=== PATIENT | female | born 1940 | race Asian ===

== ENCOUNTER 2018-12-11 11:43 | Inpatient (IN) | payer MEDICARE, MEDICAID ==
[~2018-12-11] VITALS: Ht 165.1 cm; Wt 61.8 kg
--- NOTE | 2018-12-11 12:08 | Emergency Room Report ---
History of Present Illness General Chief Complaint: Abdominal Pain Source: EMS Present Illness HPI Patient is a 78-year-old female who presented after increased epigastric pain and vomiting. Patient was brought in by EMS. Patient was noted to have acute onset of symptoms. Patient reports having multiple episodes of emesis. She denies any diarrhea. She denies any chest discomfort. History is limited by patient's poor historian. Allergies: Coded Allergies: UNABLE TO ASSESS (Unverified , 12/11/18) Patient History Past Medical History: see triage record Last Menstrual Period: N/A Reviewed Nursing Documentation: PMH: Agreed; PSxH: Agreed Nursing Documentation-PMH Past Medical History Deferred: No Family Available Review of Systems All Other Systems: negative except mentioned in HPI Physical Exam Vital Signs Date Time Temp Pulse Resp B/P (MAP) Pulse Ox O2 Delivery O2 Flow Rate FiO2 12/11/18 11:39 97.5 76 15 98 Room Air Sp02 EP Interpretation: reviewed, normal General Appearance: normal inspection, well appearing, no apparent distress, alert Head: atraumatic ENT: normal ENT inspection, hearing grossly normal, normal voice Neck: normal inspection, full range of motion, supple, no bony tend Respiratory: normal inspection, lungs clear, normal breath sounds, no respiratory distress, no retraction, no wheezing Cardiovascular #1: regular rate, rhythm, no edema Gastrointestinal: normal inspection, normal bowel sounds, non tender, soft, no guarding, no hernia Genitourinary: no CVA tenderness Musculoskeletal: normal inspection, back normal, normal range of motion Neurologic: normal inspection, alert, responsive, speech normal Psychiatric: normal inspection, judgement/insight normal, mood/affect normal Skin: normal inspection, normal color, no rash Medical Decision Making Diagnostic Impression: Primary Impression: Abdominal pain Additional Impressions: Hyponatremia Chronic pain Diabetes ER Course Patient is a 78-year-old female presented after increased abdominal pain and vomiting. Differential diagnosis include was not limited to bowel obstruction, myocardial infarction, aortic dissection among others. Because of complexity of patient's case laboratory testing and imaging studies were ordered. CT imaging of the abdomen pelvis read by radiology showed no evident bowel obstruction as well as chronic compression fracture changes to her lumbar spine. Patient was given IV fluids as well as IV antiemetics. Laboratory testing was notable for severe hyponatremia with sodium of 121. Patient was given IV antiemetics. Dr. Humphrey Vergara was contacted for inpatient management. Labs Test 12/11/18 12:20 12/11/18 14:15 White Blood Count 3.9 K/UL (4.8-10.8) Red Blood Count 3.61 M/UL (4.20-5.40) Hemoglobin 11.7 G/DL (12.0-16.0) Hematocrit 32.9 % (37.0-47.0) Mean Corpuscular Volume 91 FL (80-99) Mean Corpuscular Hemoglobin 32.3 PG (27.0-31.0) Mean Corpuscular Hemoglobin Concent 35.5 G/DL (32.0-36.0) Red Cell Distribution Width 12.2 % (11.6-14.8) Platelet Count 158 K/UL (150-450) Mean Platelet Volume 7.1 FL (6.5-10.1) Neutrophils (%) (Auto) 66.2 % (45.0-75.0) Lymphocytes (%) (Auto) 27.6 % (20.0-45.0) Monocytes (%) (Auto) 5.2 % (1.0-10.0) Eosinophils (%) (Auto) 0.1 % (0.0-3.0) Basophils (%) (Auto) 1.0 % (0.0-2.0) Prothrombin Time 11.1 SEC (9.30-11.50) Prothromb Time International Ratio 1.1 (0.9-1.1) Activated Partial Thromboplast Time 27 SEC (23-33) Sodium Level 121 MMOL/L (136-145) Potassium Level 3.9 MMOL/L (3.5-5.1) Chloride Level 87 MMOL/L (98-107) Carbon Dioxide Level 21 MMOL/L (21-32) Anion Gap 13 mmol/L (5-15) Blood Urea Nitrogen 13 mg/dL (7-18) Creatinine 1.5 MG/DL (0.55-1.30) Estimat Glomerular Filtration Rate mL/min (>60) Glucose Level 194 MG/DL (74-106) Calcium Level 8.5 MG/DL (8.5-10.1) Total Bilirubin 0.6 MG/DL (0.2-1.0) Aspartate Amino Transf (AST/SGOT) 16 U/L (15-37) Alanine Aminotransferase (ALT/SGPT) 14 U/L (12-78) Alkaline Phosphatase 49 U/L (46-116) Troponin I 0.000 ng/mL (0.000-0.056) Total Protein 7.2 G/DL (6.4-8.2) Albumin 4.0 G/DL (3.4-5.0) Globulin 3.2 g/dL Albumin/Globulin Ratio 1.3 (1.0-2.7) Lipase 279 U/L (73-393) Urine Color Pale yellow Urine Appearance Clear Urine pH 7 (4.5-8.0) Urine Specific [place] 1.005 (1.005-1.035) Urine Protein Negative (NEGATIVE) Urine Glucose (UA) 2+ (NEGATIVE) Urine Ketones 2+ (NEGATIVE) Urine Blood Negative (NEGATIVE) Urine Nitrite Negative (NEGATIVE) Urine Bilirubin Negative (NEGATIVE) Urine Urobilinogen Normal MG/DL (0.0-1.0) Urine Leukocyte Esterase 1+ (NEGATIVE) Urine RBC 0 /HPF (0 - 2) Urine WBC 0-2 /HPF (0 - 2) Urine Squamous Epithelial Cells Occasional /LPF Urine Bacteria Occasional /HPF (NONE) Urine Osmolality 233 mOsm/kg (429-449) Urine Random Sodium 79 mmol/L (20-110) EKG Diagnostic Results Rate: normal Rhythm: NSR ST Segments: no acute changes Last Vital Signs Date Time Temp Pulse Resp B/P (MAP) Pulse Ox O2 Delivery O2 Flow Rate FiO2 12/11/18 11:39 97.5 76 15 98 Room Air Status: unchanged Disposition: ADMITTED INPATIENT Condition: Serious Daniel Braga MD December 11, 2018 12:08
[2018-12-11] MEDS ORDERED: Morphine Sulfate 2mg/ml Inj(IV/IM USE ONLY) IVP ONE ×2 (12:15→13:00)
[2018-12-11 12:43] LABS: EOSINOPHILS % (AUTO) 0.1 % (0.0-3.0); HEMATOCRIT 32.9 % (37.0-47.0); HEMOGLOBIN 11.7 G/DL (12.0-16.0); LYMPHOCYTES % (AUTO) 27.6 % (20.0-45.0); MEAN CORPUSCULAR VOLUME 91 FL (80-99); MONOCYTES % (AUTO) 5.2 % (1.0-10.0); NEUTROPHILS % (AUTO) 66.2 % (45.0-75.0); PLATELET COUNT 158 K/UL (150-450); RED BLOOD COUNT 3.61 M/UL (4.20-5.40); RED CELL DISTRIBUTION WIDTH 12.2 % (11.6-14.8); WHITE BLOOD COUNT 3.9 K/UL (4.8-10.8)
[2018-12-11] MEDS ORDERED: Isovue-300 100ml vial INJ PRN (12:45)
[2018-12-11 12:48] LABS: INR 1.1 (0.9-1.1)
[2018-12-11 12:51] LABS: ANION GAP 13 mmol/L (5-15); BLOOD UREA NITROGEN 13 mg/dL (7-18); CALCIUM 8.5 MG/DL (8.5-10.1); CARBON DIOXIDE 21 MMOL/L (21-32); CHLORIDE 87 MMOL/L (98-107); CREATININE 1.5 MG/DL (0.55-1.30); POTASSIUM 3.9 MMOL/L (3.5-5.1); SODIUM 121 MMOL/L (136-145)
[2018-12-11 12:53] LABS: ALANINE AMINOTRANSFERASE 14 U/L (12-78); ALBUMIN/GLOBULIN RATIO 1.3 (1.0-2.7); ALKALINE PHOSPHATASE 49 U/L (46-116); ASPARTATE AMINO TRANSFERASE 16 U/L (15-37); BILIRUBIN,TOTAL 0.6 MG/DL (0.2-1.0)
[2018-12-11 13:33] VITALS: BP 140/87
--- NOTE | 2018-12-11 13:36 | NUR ---
ED Nurse Note:pt. was BIBA from home with c/o nausea and vomiting ,blood sent to labs and iv fluids and meds given
[2018-12-11 14:30] LABS: APPEARANCE,URINE CLEAR; BILIRUBIN, URINE NEGATIVE (NEGATIVE); COLOR,URINE PALE YELLOW; GLUCOSE, URINE (UA) 2+ (NEGATIVE); KETONES,URINE 2+ (NEGATIVE); LEUKOCYTE ESTERASE ,URINE 1+ (NEGATIVE); NITRITE,URINE NEGATIVE (NEGATIVE); PH,URINE 7 (4.5-8.0); PROTEIN,URINE NEGATIVE (NEGATIVE); UROBILINOGEN,URINE NORMAL MG/DL (0.0-1.0)
[2018-12-11] MEDS ORDERED: METOPROLOL SUCC25 MG ORAL (14:33)
[2018-12-11] MEDS ORDERED: ZOFRAN4 M3 ORAL (14:33)
[2018-12-11] MEDS ORDERED: LYRICA75 M1 ORAL (14:33)
[2018-12-11] MEDS ORDERED: ROXICODONE15 MG ORAL (14:33)
[2018-12-11] MEDS ORDERED: ACTOS15 MG ORAL (14:33)
[2018-12-11] MEDS ORDERED: REPAGLINIDE2 MG PO (14:33)
[2018-12-11] MEDS ORDERED: TRADJENTA5 MG PO (14:33)
[2018-12-11] MEDS ORDERED: CREON DR 24,001 EACH PO (14:33)
[2018-12-11] MEDS ORDERED: DOK250 M1 PO (14:33)
[2018-12-11] MEDS ORDERED: ATORVASTATIN CA20 MG ORAL (14:33)
[2018-12-11] MEDS ORDERED: DEXILANT60 MG ORAL (14:33)
[2018-12-11] MEDS ORDERED: NUCYNTA100 MG PO (14:33)
[2018-12-11] MEDS ORDERED: TEMAZEPAM15 MG ORAL (14:33)
[2018-12-11] MEDS ORDERED: GLIMEPIRIDE4 MG ORAL (14:33)
[2018-12-11] MEDS ORDERED: MELOXICAM7.5 MG PO (14:33)
--- NOTE | 2018-12-11 14:34 | NUR ---
ED Nurse Note:Remi Vazquez son [phone]
[2018-12-11 15:25] VITALS: BP 119/66
--- NOTE | 2018-12-11 15:26 | NUR ---
ED Nurse Note:called report to tele -given to RN
--- NOTE | 2018-12-11 16:15 | NUR ---
NURSE NOTES: I received the patient from the ED. Patient alert and oriented x4. Patient oriented to the room. Bed in the lowest position and call light within reach. Patient's belongings list reviewed. Patient does not display any signs of distress or SOB.
--- NOTE | 2018-12-11 16:16 | NUR ---
ED Nurse Note:called report to tele- given to brenda Mcintosh. taken up stairs
[2018-12-11 16:20] VITALS: BP 145/91
[2018-12-11] MEDS: Lyrica 25mg cap ORAL SCH (18:04)
--- NOTE | 2018-12-11 19:19 | NUR ---
HAND-OFF: Report given to FALLON Gil.
--- NOTE | 2018-12-11 19:20 | NUR ---
NURSE NOTES: Received Pt is resting on the bed and awake and alert. Iv site intact and no sign of infiltration noted. Still has mild On & off nausea sense but she said little bit better. On Tele monitor with SR. Placed fall precaution. Will continue to care plan.
[2018-12-11 20:00] VITALS: BP 116/68
[2018-12-11] MEDS: oxyCODONE 5mg IR tab ORAL PRN (20:31)
[2018-12-11] MEDS: NovoLOG Insulin Flexpen SUBQ SCH (20:52)
[2018-12-12] VITALS: BP 117/69
--- NOTE | 2018-12-12 01:00 | NUR ---
NURSE NOTES: Pt is sleeping on the bed and no sign of acute distress noted. Denied pain at this time. Placed fall precaution. Provided good sleep environment. Will continue to monitor any change of condition.
[2018-12-12 04:00] VITALS: BP 119/71
[2018-12-12] MEDS: NovoLOG Insulin Flexpen SUBQ SCH ×4 (06:30→21:00)
--- NOTE | 2018-12-12 06:40 | NUR ---
NURSE NOTES: Dr. Shepard visited and assessed Pt. Noted poor P.O intake. Pt has episode of hypoglycemia with glucose level was 61mg/dl but no symptomatic. Dr. Shepard awarded.
[2018-12-12 06:46] LABS: ALANINE AMINOTRANSFERASE 13 U/L (12-78); ALBUMIN 3.4 G/DL (3.4-5.0); ALKALINE PHOSPHATASE 45 U/L (46-116); ANION GAP 13 mmol/L (5-15); ASPARTATE AMINO TRANSFERASE 23 U/L (15-37); BILIRUBIN,TOTAL 0.6 MG/DL (0.2-1.0); BLOOD UREA NITROGEN 9 mg/dL (7-18); CALCIUM 7.9 MG/DL (8.5-10.1); CARBON DIOXIDE 19 MMOL/L (21-32); CHLORIDE 100 MMOL/L (98-107); POTASSIUM 3.7 MMOL/L (3.5-5.1); SODIUM 132 MMOL/L (136-145)
[2018-12-12] MEDS ORDERED: Sorbitol Solution UD 30ml ORAL SCH (06:59)
--- NOTE | 2018-12-12 07:01 | General Progress Note ---
Assessment/Plan Assessment/Plan: GI CONSULT Patient seen with Latvian speaking RN Connor cornejoian Will discuss with family later today Rec - laxative - check OB - PPI - Hold NSAID - Clears - May need GI w/u for anemia Thank you Jose L Shepard MD Subjective Allergies: Coded Allergies: No Known Allergies (Unverified , 12/11/18) Objective Last 24 Hour Vital Signs Date Time Temp Pulse Resp B/P (MAP) Pulse Ox O2 Delivery O2 Flow Rate FiO2 12/12/18 04:00 58 12/12/18 04:00 98.1 67 20 119/71 (87) 98 12/12/18 00:00 60 12/12/18 00:00 98.7 71 20 117/69 (85) 97 12/11/18 21:00 Room Air 12/11/18 20:00 98.9 72 20 116/68 (84) 98 12/11/18 20:00 72 12/11/18 18:34 97.9 12/11/18 16:20 97.9 76 20 145/91 (109) 98 12/11/18 16:17 Room Air 12/11/18 16:15 97.5 67 15 119/66 100 Room Air 12/11/18 16:14 97.5 12/11/18 16:14 97.5 12/11/18 15:25 97.5 67 15 119/66 100 Room Air 12/11/18 13:33 76 15 Room Air 12/11/18 13:33 97.5 76 15 140/87 98 Room Air 12/11/18 11:39 97.5 76 15 98 Room Air Intake and Output 12/11/18 12/12/18 19:00 07:00 Intake Total 90 ml 1090 ml Balance 90 ml 1090 ml Intake IV Total 90 ml 1090 ml # Voids 2 3 Laboratory Tests 12/11/18 12:20: White Blood Count 3.9L, Red Blood Count 3.61L, Hemoglobin 11.7L, Hematocrit 32.9L, Mean Corpuscular Volume 91, Mean Corpuscular Hemoglobin 32.3H, Mean Corpuscular Hemoglobin Concent 35.5, Red Cell Distribution Width 12.2, Platelet Count 158, Mean Platelet Volume 7.1, Neutrophils (%) (Auto) 66.2, Lymphocytes (% ) (Auto) 27.6, Monocytes (%) (Auto) 5.2, Eosinophils (%) (Auto) 0.1, Basophils ( %) (Auto) 1.0, Prothrombin Time 11.1, Prothromb Time International Ratio 1.1, Activated Partial Thromboplast Time 27, Sodium Level 121L, Potassium Level 3.9, Chloride Level 87L, Carbon Dioxide Level 21, Anion Gap 13, Blood Urea Nitrogen 13, Creatinine 1.5H, Estimat Glomerular Filtration Rate , Glucose Level 194H, Calcium Level 8.5, Total Bilirubin 0.6, Aspartate Amino Transf (AST/SGOT) 16, Alanine Aminotransferase (ALT/SGPT) 14, Alkaline Phosphatase 49, Troponin I 0.000, Total Protein 7.2, Albumin 4.0, Globulin 3.2, Albumin/Globulin Ratio 1.3 , Lipase 279 12/11/18 14:15: Urine Color Pale yellow, Urine Appearance Clear, Urine pH 7, Urine Specific [place] 1.005, Urine Protein Negative, Urine Glucose (UA) 2+H, Urine Ketones 2+H , Urine Blood Negative, Urine Nitrite Negative, Urine Bilirubin Negative, Urine Urobilinogen Normal, Urine Leukocyte Esterase 1+H, Urine RBC 0, Urine WBC 0-2, Urine Squamous Epithelial Cells Occasional, Urine Bacteria Occasional, Urine Osmolality 233L, Urine Random Sodium 79 12/12/18 05:30: Sodium Level 132#L, Potassium Level 3.7, Chloride Level 100, Carbon Dioxide Level 19L, Anion Gap 13, Blood Urea Nitrogen 9, Creatinine 1.0, Estimat Glomerular Filtration Rate , Glucose Level 61#L, Calcium Level 7.9L, Total Bilirubin 0.6, Aspartate Amino Transf (AST/SGOT) 23, Alanine Aminotransferase ( ALT/SGPT) 13, Alkaline Phosphatase 45L, Total Protein 6.7, Albumin 3.4, Globulin 3.3, Albumin/Globulin Ratio 1.0 Height (Feet): 5 Height (Inches): 2.00 Weight (Pounds): 134 Jose L Shepard MD December 12, 2018 07:01
--- NOTE | 2018-12-12 07:12 | NUR ---
HAND-OFF: Report given to FALLON Aly. Pt is resting on the bed and no sign of acute distress noted.
--- NOTE | 2018-12-12 07:38 | NUR ---
NURSE NOTES: Received report from FALLON Gil. Patient in bed resting, no active s/s cardiac, respiratory distress noticed at this time. Patient Aox2, confuse, SR with HR 67. Patient on room air, IV on right FA 22G, asymptomatic, patent, intact, IV running at prescribed rate. Endorsed need of OB stool. Bed in lowest position, bedside commode at the bedside, bed alarm on, side rails up x3, call light within reach. Will continue to monitor.
[2018-12-12 08:00] VITALS: BP 126/64
[2018-12-12 08:06] LABS: BASOPHILS % (AUTO) 0.3 % (0.0-2.0); EOSINOPHILS % (AUTO) 0.2 % (0.0-3.0); HEMATOCRIT 31.8 % (37.0-47.0); HEMOGLOBIN 11.2 G/DL (12.0-16.0); LYMPHOCYTES % (AUTO) 14.9 % (20.0-45.0); MEAN CORPUSCULAR VOLUME 90 FL (80-99); MONOCYTES % (AUTO) 6.1 % (1.0-10.0); NEUTROPHILS % (AUTO) 78.5 % (45.0-75.0); PLATELET COUNT 130 K/UL (150-450); RED BLOOD COUNT 3.52 M/UL (4.20-5.40); RED CELL DISTRIBUTION WIDTH 12.6 % (11.6-14.8); WHITE BLOOD COUNT 7.2 K/UL (4.8-10.8)
--- NOTE | 2018-12-12 08:23 | NUR ---
CASE MANAGEMENT:REVIEW 78 YR OLD FEMALE BIBA FROM HOME CC: ABDOMINAL PAIN WITH N/V X 2 DAYS SI: ABDOMINAL PAIN. DIABETES. HYPONATREMIA 97.6 76 15 140/87 98% ON RA NA-121 CR+1.5 GLUCOSE+194 IS: IV ZOFRAN 500CC NS BOLUS IV MORPHINE IV PEPCID CT ABD/PELVIS : TO TELEMETRY INTERQUAL CRITERIA MET
[2018-12-12] MEDS: Metoprolol Succinate XL 25mg tab ORAL SCH (08:28)
[2018-12-12] MEDS: Glimepiride 4mg tab ORAL SCH (08:28)
[2018-12-12] MEDS: Docusate 250mg cap ORAL SCH (08:28)
[2018-12-12] MEDS: Lyrica 25mg cap ORAL SCH ×3 (08:28→17:15)
[2018-12-12] MEDS: Pantoprazole Inj IVP SCH ×2 (08:28→20:59)
--- NOTE | 2018-12-12 09:15 | Consultation ---
DATE OF CONSULTATION: 12/12/2018 GASTROENTEROLOGY CONSULTATION CONSULTING PHYSICIAN: Jose L Shepard M.D. CHIEF COMPLAINT: I was asked to see this patient by Dr. Humphrey Vergara for evaluation of abdominal pain. HISTORY OF PRESENT ILLNESS: The patient is a 78-year-old Mongolian woman, who is a poor historian even when questioned through a Mongolian-speaking nurse, who was brought into the hospital for a few days of abdominal pain and vomiting. No further details can be ascertained per the patient. Then, at this point, she states her abdominal pain has improved and she apparently told the nurse that she wanted to go home last night. The patient cannot tell me if she has had endoscopy and colonoscopy before and there is no family at bedside at this time. The patient has not been noted to have any hematemesis or melena, but she does have some degree of anemia on her blood test. The remainder of the information can be gathered from her medication list. Most notably she appears to take Mobic and also she is diabetic. She has not had any acid-blocking medications or aspirin. Some of this information is presumed from the patient's medication list, but the patient has a history of diabetes, hypertension, and hypercholesterolemia. Her medications, atorvastatin, but she is also on Dexilant for acid suppression. It is unclear whether the patient has had any endoscopy or colonoscopy in the past. A CT scan of the abdomen and pelvis done last night did not reveal any gastroscope pathology. PAST MEDICAL HISTORY: Based on the information from the chart and her medication list, the patient appears to have a history of hypercholesterolemia, diabetes, and hypertension. FAMILY HISTORY: Unavailable. SOCIAL HISTORY: The patient is Mongolian speaking and according to the nurse may have some degree of dementia. REVIEW OF SYSTEMS: Otherwise negative. MEDICATIONS: Atorvastatin, Dexilant, docusate, glimepiride, Tradjenta, Creon, meloxicam, metoprolol, Zofran, oxycodone, Actos, Lyrica, repaglinide, Nucynta, and temazepam. PHYSICAL EXAMINATION: GENERAL: An elderly Mongolian woman, seen in her room with a Mongolian-speaking nurse at bedside. HEENT: Normocephalic and atraumatic. NECK: Supple. CHEST: Clear to auscultation. CARDIOVASCULAR: Revealed regular rate. ABDOMEN: Soft, nontender, and nondistended. Good bowel sounds. There is no organomegaly or masses. EXTREMITIES: Revealed no edema. LABORATORY DATA: Noted. Preliminary CT scan results were noted. ASSESSMENT: This patient presents with abdominal pain, nausea, and vomiting of unclear etiology. She is somewhat of a poor historian and very little information is available from the chart. There is a variety of factors, which may be resulting in her symptoms. Her oxycodone could be partly factor as well as diabetic gastroparesis. On the other hand, she also has a peptic ulcer disease because she takes meloxicam. Simple viral gastroenteritis, KUB another consideration, which should be true if her current symptom resolves uneventfully. She does however have anemia and should undergo anemia workup if this has not been already done. I will obtain some more information from the patient's family later today and further plans can be made according to that. In the meantime, I would hold any nonsteroidal anti-inflammatory drugs and continue her proton pump inhibitor. Stools can be checked for occult blood and I would begin clear liquid diet and advance as tolerated. RECOMMENDATIONS: Per above discussion and per orders written in the chart. I will discuss the patient's issues with the family and further plans can be made at that time. Thank you for asking me to participate in the care of this patient.s Jose L Shepard M.D. DR: HUA JOB#: [id number] CC: JOSÉ MIGUEL
--- NOTE | 2018-12-12 10:00 | History and Physical Report ---
DATE OF ADMISSION: 12/11/2018 REASON FOR ADMISSION: Abdominal pain. HISTORY: This is a 78-year-old female, presents with abdominal pain. The patient was seen by GI with noted constipation. The patient presents with some abdominal discomfort and increasing vomiting. Symptoms are fairly acute in nature with multiple bouts of emesis. The patient has no diarrhea, no hematemesis, no hematochezia. The patient's care discussed and reviewed with the ER physician. The ER notes were reviewed. Laboratories this morning are pending. The patient had no recent travel. No ill contacts. PAST MEDICAL HISTORY: Notable for hypercholesterolemia, diabetes, hypertension, and possible neuropathy. MEDICATIONS: Reviewed. ALLERGIES: Reviewed. SOCIAL HISTORY: Retired of descent, nonsmoker, nondrinker. No alcohol use. REVIEW OF SYSTEMS: Difficult due to language barrier, but otherwise fairly comfortable. PHYSICAL EXAMINATION: VITAL SIGNS: Blood pressure 119/71, pulse 58, respirations 20, temperature 98.1, and saturations 98%. HEENT: Fairly negative. NECK: Supple. Extraocular movements are grossly intact. Oropharynx essentially clear. LUNGS: Fairly clear. Symmetric. No rhonchi or wheezes. CARDIAC: Normal S1, S2. Regular rate and rhythm without murmurs, rubs, or gallops. ABDOMEN: Soft, nontender, nondistended. EXTREMITIES: No cyanosis, clubbing, or edema. NEUROLOGICAL: Appears to be grossly nonfocal. LABORATORY DATA: Sodium was 121, now 132. Electrolytes are otherwise fairly negative. Calcium is 7.9. CBC, white count 3.9, hemoglobin 11.7, platelets are normal. Imaging noted and reviewed. IMPRESSION: Abdominal pain, noted constipation, hyponatremia, chronic pain, diabetes, and hypertension. RECOMMENDATIONS: Supportive care. IV hydration. Antiemetics. GI evaluation and recommendations. Monitor clinically. Laxatives as able and follow further changes and recommendations and discharge when the patient improves. Humphrey Vergara M.D. DR: NICKY JOB#: [id number] CC:
--- NOTE | 2018-12-12 10:34 | Diagnostic Imaging Report ---
Indication: Chest and abdominal pain. Nausea vomiting Technique: Continuous helical transaxial imaging of the chest, abdomen and pelvis was obtained from the thoracic inlet to the pubic symphysis. No IV contrast was administered. Coronal 2-D reformats were also obtained. Study obtained in a Siemens sensation [address] Total Dose length Product (DLP): 846.[address] Dose Index Volume (CTDIvol): 13.12 mGy Comparison: None Findings: There is mild posterior basal atelectasis. Aorta is calcified. Evaluation limited by the nonadministration of IV contrast. There is a small hiatal hernia. The gallbladder is mildly distended which is nonspecific. No obvious gallstones identified. There is no free fluid. There is no nephrolithiasis or hydronephrosis. There is no evidence of bowel obstruction. Urinary bladder is unremarkable. Atrophic uterus noted. The appendix is normal. There is narrowing of intervertebral discs and accompanying endplate osteophyte formation. Hypertrophied facet joints also demonstrated.. There is a compression fracture deformity of L3 and L1 vertebra which are probably old. The bones are osteopenic. IMPRESSION: No acute findings identified. L1 and L3 vertebral compression fractures probably old. Osteoporosis noted. Atherosclerotic vascular disease Small hiatal hernia [facility] has communicated the preliminary results to the Emergency Department. Their findings are largely concordant with this report. The CT scanner at [facility] is accredited by the [employer] and the scans are performed using dose optimization techniques as appropriate to a performed exam including Automatic Exposure control.
[2018-12-12 12:00] VITALS: BP 112/63
[2018-12-12] MEDS: oxyCODONE 5mg IR tab ORAL PRN (13:56)
[2018-12-12 16:00] VITALS: BP 145/85
--- NOTE | 2018-12-12 19:15 | Physician Query ---
Dr. Reed CDS: Drehaley This is a 78-year-old female, presents with abdominal pain. The patient was seen by GI with noted constipation. consult" There is a variety of factors, which may be resulting in her symptoms. Her oxycodone could be partly factor diabetic gastroparesis. On the other hand, she also has a peptic ulcer disease because she takes meloxicam." CT Chest Abdomen Pelvis wo Con: The gallbladder is mildly distended which is nonspecific. No obvious gallstones identified. There is no free fluid. There is no nephrolithiasis or hydronephrosis.There is no evidence of bowel obstruction. Urinary bladder is unremarkable Lab: AST/ALT normal ALK:49,45L Please specify the etiology of Abdominal Pain: Appendicitis, Acute Thoracic Aortic Aneury Constipation Diverticulitis, Acute Pancreatitis, Acute Peritonitis Peritoneal Inflammation GERD Peptic Ulcer Cholelithiasis Peritoneal Irritation Diabetic Ketoacidosis Cystitis Peritoneal Infection Mesenteric Artery Occlusion Cholecystitis Retroperitoneal infection Cholangitis Pyelonephritis Cancer Pelvic Inflammatory Disease Gastroenteritis, Bacterial Urinary Tract Infection Hernia Irritable Bowel Syndrome Shingles Renal Stones Gastroenteritis, Viral Gastritis Intestinal Obstruction Uremia Ulcerative Colitis Trauma(please specify): Acute Ischemia of the intestine Acute Infarction of the intestine Necrotizing Enterocolitis Other: Unable to determine Comment/Explanation: Present on Admission: Yes (Y) Clinically Undeterminable (W) No (N) PHYSICIAN QUERY FORM ABDOMINAL PAIN PLEASE SEND TO DR BRENT VALDEZ
--- NOTE | 2018-12-12 19:15 | NUR ---
NURSE NOTES: Received report from Kinsey Aly RN. Pt is resting in the bed w/o distress at this time. IV is patent and asymptomatic, NS is running at 100ml/h. Bed is in the lowest position,side rails up x2, and breaks are engaged. Call light and side table are w/in reach. Will continue to monitor.
--- NOTE | 2018-12-12 19:46 | NUR ---
HAND-OFF: Report given to FALLON Wyatt.
[2018-12-12 20:00] VITALS: BP 139/77
[2018-12-13] VITALS: BP 136/75
--- NOTE | 2018-12-13 01:00 | NUR ---
NURSE NOTES: Pt was assisted to repositioned. No acute distress at this time in RA. Will continue to monitor.
[2018-12-13 04:00] VITALS: BP 133/77
[2018-12-13] MEDS: NovoLOG Insulin Flexpen SUBQ SCH ×4 (06:02→20:59)
[2018-12-13] MEDS: oxyCODONE 5mg IR tab ORAL PRN ×3 (06:12→20:23)
--- NOTE | 2018-12-13 07:20 | NUR ---
NURSE NOTES: I received the patient awake and resting in bed. Patient was eating breakfast and conversing. Bed in the lowest position and call light within reach. Patient does not display any signs of distress or SOB. I will continue to monitor the patient and implement care.
--- NOTE | 2018-12-13 07:20 | NUR ---
HAND-OFF: Report given to Radha Arias RN. Pt c/o abdominal pain and pain med was given at 0630. Pt is eating the breakfast by herself. No acute distress at this time.
[2018-12-13 07:45] LABS: BASOPHILS % (AUTO) 0.8 % (0.0-2.0); EOSINOPHILS % (AUTO) 0.8 % (0.0-3.0); HEMATOCRIT 32.3 % (37.0-47.0); HEMOGLOBIN 11.2 G/DL (12.0-16.0); LYMPHOCYTES % (AUTO) 23.9 % (20.0-45.0); MEAN CORPUSCULAR VOLUME 93 FL (80-99); MONOCYTES % (AUTO) 9.1 % (1.0-10.0); NEUTROPHILS % (AUTO) 65.4 % (45.0-75.0); PLATELET COUNT 153 K/UL (150-450); RED BLOOD COUNT 3.47 M/UL (4.20-5.40); RED CELL DISTRIBUTION WIDTH 12.9 % (11.6-14.8); WHITE BLOOD COUNT 5.5 K/UL (4.8-10.8)
[2018-12-13 08:00] VITALS: BP 130/70
[2018-12-13 08:08] LABS: % IRON SATURATION 22 % (15-50); IRON 48 ug/dL (50-175); TOTAL IRON BINDING CAPACITY 221 ug/dL (250-450)
--- NOTE | 2018-12-13 08:13 | General Progress Note ---
Assessment/Plan Assessment/Plan: IMPRESSION: Abdominal pain, noted constipation, hyponatremia, chronic pain, diabetes, and hypertension. anemia differential ? cholecystitis vs pancreatitis vs constipation PLAN care noted await further gi recommendations CT noted finalize care dispo pending impression, plan, and exam edited and reviewed in detail care discussed with RN Subjective Allergies: Coded Allergies: No Known Allergies (Unverified , 12/11/18) Subjective gi noted and discussed care reviewed Objective Last 24 Hour Vital Signs Date Time Temp Pulse Resp B/P (MAP) Pulse Ox O2 Delivery O2 Flow Rate FiO2 12/13/18 04:00 97.9 68 18 133/77 (95) 99 12/13/18 03:49 54 12/13/18 00:01 69 12/13/18 00:00 97.5 66 18 136/75 (95) 98 12/12/18 21:00 Room Air Room Air 12/12/18 20:00 97.8 64 18 139/77 (97) 98 12/12/18 19:16 63 12/12/18 16:00 98.7 73 21 145/85 (105) 98 12/12/18 16:00 63 12/12/18 12:00 97.4 84 21 112/63 (79) 94 12/12/18 12:00 90 12/12/18 09:00 Room Air 12/12/18 08:28 70 120/64 Intake and Output 12/12/18 12/13/18 18:59 06:59 Intake Total 100 ml 800 ml Balance 100 ml 800 ml Intake IV Total 100 ml 800 ml # Voids 3 5 Laboratory Tests 12/12/18 12:55: Stool Occult Blood [Pending] 12/13/18 06:00: White Blood Count 5.5, Red Blood Count 3.47L, Hemoglobin 11.2L, Hematocrit 32.3L , Mean Corpuscular Volume 93, Mean Corpuscular Hemoglobin 32.2H, Mean Corpuscular Hemoglobin Concent 34.5, Red Cell Distribution Width 12.9, Platelet Count 153, Mean Platelet Volume 6.6, Neutrophils (%) (Auto) 65.4, Lymphocytes (% ) (Auto) 23.9, Monocytes (%) (Auto) 9.1, Eosinophils (%) (Auto) 0.8, Basophils ( %) (Auto) 0.8, Iron Level 48L, Total Iron Binding Capacity 221L, Percent Iron Saturation 22, Unsaturated Iron Binding 173 Height (Feet): 5 Height (Inches): 2.00 Weight (Pounds): 134 Objective NAD HEENT: Fairly negative. NECK: Supple. Oropharynx essentially clear. LUNGS: Fairly clear. Symmetric. No rhonchi or wheezes. CARDIAC: Normal S1, S2. Regular rate and rhythm without murmurs, rubs, or gallops. ABDOMEN: Soft, nontender, nondistended. no HSM EXTREMITIES: No cyanosis, clubbing, or edema. NEUROLOGICAL: Appears to be grossly nonfocal. Humphrey Vergara MD December 13, 2018 08:13
[2018-12-13] MEDS: Docusate 250mg cap ORAL SCH (08:26)
[2018-12-13] MEDS: Glimepiride 4mg tab ORAL SCH (08:26)
[2018-12-13] MEDS: Pantoprazole Inj IVP SCH ×2 (08:26→20:23)
[2018-12-13] MEDS: Lyrica 25mg cap ORAL SCH ×3 (08:26→17:30)
[2018-12-13] MEDS: Metoprolol Succinate XL 25mg tab ORAL SCH (08:27)
[2018-12-13 12:00] VITALS: BP 136/94
[2018-12-13 15:56] VITALS: BP 98/65
--- NOTE | 2018-12-13 19:09 | NUR ---
HAND-OFF: Report given to Boogie Wells RN.
--- NOTE | 2018-12-13 19:10 | NUR ---
NURSE NOTES: Received pt from FALLON Mcintosh. PT awake and resting in bed. IV site intact. Bed in lowest position and call light within reach. Will continue with plan of care.
[2018-12-13 20:00] VITALS: BP 108/58
--- NOTE | 2018-12-13 20:06 | General Progress Note ---
Assessment/Plan Assessment/Plan: Assessment - epigastric pain - Anorexia - mild elevation in LFT - anemia Recommendations - PPI - Hold NSAID - advance diet - HIDA scan with CCK in am - EGD Subjective Allergies: Coded Allergies: No Known Allergies (Unverified , 12/11/18) Subjective Above noted patient states she had colonoscopy a few months ago but agreed to EGD states she has difficulty eating due to pain Stool OB (-) Objective Last 24 Hour Vital Signs Date Time Temp Pulse Resp B/P (MAP) Pulse Ox O2 Delivery O2 Flow Rate FiO2 12/13/18 18:00 100.0 12/13/18 15:56 100.0 68 20 98/65 (76) 99 12/13/18 15:13 66 12/13/18 12:50 62 12/13/18 12:00 98.2 71 20 136/94 (108) 95 12/13/18 09:00 Room Air Room Air 12/13/18 08:27 80 113/69 12/13/18 08:00 98.0 71 18 130/70 (90) 98 12/13/18 07:38 89 12/13/18 04:00 97.9 68 18 133/77 (95) 99 12/13/18 03:49 54 12/13/18 00:01 69 12/13/18 00:00 97.5 66 18 136/75 (95) 98 12/12/18 21:00 Room Air Room Air Intake and Output 12/12/18 12/13/18 19:00 07:00 Intake Total 100 ml 700 ml Balance 100 ml 700 ml IV Total 100 ml 700 ml # Voids 3 5 Laboratory Tests 12/13/18 06:00: White Blood Count 5.5, Red Blood Count 3.47L, Hemoglobin 11.2L, Hematocrit 32.3L , Mean Corpuscular Volume 93, Mean Corpuscular Hemoglobin 32.2H, Mean Corpuscular Hemoglobin Concent 34.5, Red Cell Distribution Width 12.9, Platelet Count 153, Mean Platelet Volume 6.6, Neutrophils (%) (Auto) 65.4, Lymphocytes (% ) (Auto) 23.9, Monocytes (%) (Auto) 9.1, Eosinophils (%) (Auto) 0.8, Basophils ( %) (Auto) 0.8, Iron Level 48L, Total Iron Binding Capacity 221L, Percent Iron Saturation 22, Unsaturated Iron Binding 173 Height (Feet): 5 Height (Inches): 2.00 Weight (Pounds): 134 Objective WDWN NCAT supple CTA RRR abd soft ND no edema calm, interactive Jose L Shepard MD December 13, 2018 20:06
[2018-12-14] VITALS: BP 106/66
[2018-12-14 04:00] VITALS: BP 131/73
[2018-12-14] MEDS: NovoLOG Insulin Flexpen SUBQ SCH ×4 (06:30→20:51)
--- NOTE | 2018-12-14 07:15 | NUR ---
HAND-OFF: Report given to FALLON Gates. Endorsed plan of care.
--- NOTE | 2018-12-14 07:34 | NUR ---
NURSE NOTES: Received report from FALLON Matthew. Patient in bed resting, no active s/s cardiac, respiratory distress noticed at this time. Patient on room air, SR with HR 60, AOx3. Endorsed hepatobiliary scan schedule today 12/14/18. IV on right FA 22 G, asymptomatic, patent, intact, IV fluid running at prescribed rate. Bed in lowest position, side rails upx3, call light within reach, bedside commode at the bedside. Will continue to monitor.
--- NOTE | 2018-12-14 07:55 | NUR ---
CASE MANAGEMENT:REVIEW 12/14/18 SI: ABDOMINAL/EPIGASTRIC PAIN CHOLECYSTITIS vs PANCREATITIS vs CONSTIPATION TEMP LAST NIGHT TO 100.0 98.9 67 18 131/73 95% ON RA IS: IVF@100/HR COLACE PO QD TOPROL XL PO QD ACTOS PO QD IV PROTONIX QD AMARYL PO QD LYRICA PO TID OXYCODONE PO Q6HRS PRN : TELEMETRY STATUS DCP: FROM HOME PLAN: CONSENT FOR EGD PLANNED FOR HIDA SCAN
[2018-12-14 08:00] VITALS: BP 123/70
[2018-12-14] MEDS: Glimepiride 4mg tab ORAL SCH (08:00)
[2018-12-14] MEDS: Lyrica 25mg cap ORAL SCH ×3 (08:36→17:38)
[2018-12-14] MEDS: Docusate 250mg cap ORAL SCH (08:36)
[2018-12-14] MEDS: Metoprolol Succinate XL 25mg tab ORAL SCH (08:36)
[2018-12-14] MEDS: Pantoprazole Inj IVP SCH ×2 (08:37→20:55)
--- NOTE | 2018-12-14 08:57 | NUR ---
NURSE NOTES: Paged Dr. Shepard regarding PO medication prior to procedure, per Dr. Shepard contact x-ray to clarify if patient can have PO medication prior to HIDA scan. Called x-ray, spoke with Abundio, patient may have PO medication. Per Dr. Shepard, OFF tele order okay for the procedure. Order noted, entered, carried out. Will continue to monitor.
--- NOTE | 2018-12-14 09:29 | General Progress Note ---
Assessment/Plan Assessment/Plan: IMPRESSION: Abdominal pain, noted constipation, hyponatremia, chronic pain, diabetes, and hypertension. anemia differential ? cholecystitis vs pancreatitis vs constipation PLAN care noted await further gi recommendations EGD CT noted finalize care dispo pending EGD and gi clearance impression, plan, and exam edited and reviewed in detail care discussed with RN Subjective ROS Limited/Unobtainable: Yes Allergies: Coded Allergies: No Known Allergies (Unverified , 12/11/18) Subjective gi noted and discussed care reviewed EGD in am Objective Last 24 Hour Vital Signs Date Time Temp Pulse Resp B/P (MAP) Pulse Ox O2 Delivery O2 Flow Rate FiO2 12/14/18 09:00 Room Air Room Air 12/14/18 08:36 68 123/70 12/14/18 08:00 98.1 68 21 123/70 (87) 96 12/14/18 04:00 67 12/14/18 04:00 98.9 67 18 131/73 (92) 95 12/14/18 00:00 98.1 65 18 106/66 (79) 97 12/14/18 00:00 65 12/13/18 21:00 Room Air Room Air 12/13/18 20:00 98.7 68 18 108/58 (75) 96 12/13/18 20:00 68 12/13/18 18:00 100.0 12/13/18 15:56 100.0 68 20 98/65 (76) 99 12/13/18 15:13 66 12/13/18 12:50 62 12/13/18 12:00 98.2 71 20 136/94 (108) 95 Intake and Output 12/13/18 12/14/18 18:59 06:59 Intake Total 1700 ml 903 ml Output Total 700 ml Balance 1700 ml 203 ml Intake Oral 600 ml IV Total 1100 ml 903 ml Output Urine Total 700 ml # Voids 4 Height (Feet): 5 Height (Inches): 2.00 Weight (Pounds): 136 Objective NAD HEENT: Fairly negative. NECK: Supple. Oropharynx essentially clear. LUNGS: Fairly clear. Symmetric. No rhonchi or wheezes. CARDIAC: Normal S1, S2. Regular rate and rhythm without murmurs, rubs, or gallops. ABDOMEN: Soft, nontender, nondistended. no HSM EXTREMITIES: No cyanosis, clubbing, or edema. NEUROLOGICAL: Appears to be grossly nonfocal. Humphrey Vergara MD December 14, 2018 09:29
--- NOTE | 2018-12-14 10:00 | Diagnostic Imaging Report ---
APPROVED REPORT CPT Code: 34902 Present Symptoms Comments: BILATERAL LEGS PAIN. BILATERAL: Imaging reveals a patent deep venous system bilaterally. There is no evidence of thrombus within the femoral, popliteal or tibial segments. The greater saphenous veins are also within normal limits. Doppler indicates normal spontaneous flow within these segments.
[2018-12-14 12:00] VITALS: BP 137/77
[2018-12-14] MEDS: oxyCODONE 5mg IR tab ORAL PRN (15:38)
--- NOTE | 2018-12-14 15:41 | NUR ---
NURSE NOTES: Patient off unit for HIDA scan second part.
--- NOTE | 2018-12-14 16:27 | Diagnostic Imaging Report ---
Indication: Abdominal Pain Technique: 5.2 mCi of technetium 99 m-Choletec was injected intravenously. Planar imaging of the abdomen was then performed every 3 minutes up to 60 minutes. Patient refused continued imaging in the nuclear medicine Department and was sent back up to the floor. Patient was brought down for delayed imaging at 3.5 hours after administration of radiotracer. Findings: There is uniform uptake of radiotracer within the liver. There is passage of radiotracer into the bile ducts and into the common bile duct. No radiotracer is noted within the small bowel at 60 minutes. No radiotracer is noted in the gallbladder at 60 minutes. On delayed image obtained 3.5 hours after administration of radiotracer, there is a previous accumulation within the gallbladder. Radiotracer has also passed into the small bowel. IMPRESSION: Delayed visualization of the gallbladder between 1 - 3.5 hours. Findings may suggest chronic cholecystitis. Delayed passage of radiotracer into the small bowel possibly suggesting possible sphincter of Oddi dysfunction. Gallbladder ejection fraction images to be obtained.
--- NOTE | 2018-12-14 17:30 | NUR ---
NURSE NOTES: Patient back to tele, special tester on, HIDA scan done, per Abundio, the result will be ready by tomorrow 12/15/18.
--- NOTE | 2018-12-14 19:24 | NUR ---
HAND-OFF: Report given to FALLON Matthew.
--- NOTE | 2018-12-14 19:25 | NUR ---
NURSE NOTES: Received report from FALLON Solitario. Pt is awake and resting in bed. Pt has no c/o pain. IV site intact. Bed in lowest position and call light within reach. Will continue with plan of care.
--- NOTE | 2018-12-14 19:29 | Physician Query ---
Dear Dr. Shepard CDS: Reynold For documentation purposes please evaluate and answer: This is a 78-year-old female, presents with abdominal pain. The patient was seen by GI with noted constipation. consult" There is a variety of factors, which may be resulting in her symptoms. Her oxycodone could be partly factor diabetic gastroparesis. On the other hand, she also has a peptic ulcer disease because she takes meloxicam." Clinical finding: CT Chest Abdomen Pelvis wo Con: The gallbladder is mildly distended which is nonspecific. No obvious gallstones identified. There is no free fluid. There is no nephrolithiasis or hydronephrosis. There is no evidence of bowel obstruction. Urinary bladder is unremarkable Lab: AST/ALT normal ALK:49,45L Please specify the etiology of Abdominal Pain: [ ]Appendicitis, Acute [ ] Thoracic Aortic Aneury [ ] Constipation [ ]Diverticulitis, Acute [ ]Pancreatitis, Acute [ ]Peritonitis [ ]Peritoneal Inflammation [ ]GERD [ ]Peptic Ulcer [ ]Cholelithiasis [ ]Cystitis [ ] Peritoneal Infection [ ] Mesenteric Artery Occlusion [ ]Cholecystitis [ ]Retroperitoneal infection [ ]Cholangitis [ ]Pyelonephritis [ ]Gastroenteritis, Bacterial [ ]Urinary Tract Infection [ ] Irritable Bowel Syndrome [ ]Renal Stones [ ]Gastroenteritis, Viral [ ]Gastritis [ ] Intestinal Obstruction [ ]Ulcerative Colitis [ ]Other: [ ]Unable to determine Comment/Explanation: Present on Admission: [ ]Yes (Y) [ ]Clinically Undeterminable (W) [ ]No (N) PHYSICIAN QUERY FORM ABDOMINAL PAIN MTDD
[2018-12-14 20:00] VITALS: BP 155/86
--- NOTE | 2018-12-14 21:16 | General Progress Note ---
Assessment/Plan Assessment/Plan: Assessment - epigastric pain - improved, possibly due to PUD vs chronic bebeto - Anorexia - mild elevation in LFT - anemia Recommendations - PPI - Hold NSAID - advance diet - EGD Subjective Allergies: Coded Allergies: No Known Allergies (Unverified , 12/11/18) Subjective Above noted better today tolerating po HIDA completed - full report pending Objective Last 24 Hour Vital Signs Date Time Temp Pulse Resp B/P (MAP) Pulse Ox O2 Delivery O2 Flow Rate FiO2 12/14/18 16:00 68 12/14/18 12:00 78 12/14/18 12:00 98.0 75 23 137/77 (97) 97 12/14/18 09:00 Room Air Room Air 12/14/18 08:36 68 123/70 12/14/18 08:00 98.1 68 21 123/70 (87) 96 12/14/18 08:00 65 12/14/18 04:00 67 12/14/18 04:00 98.9 67 18 131/73 (92) 95 12/14/18 00:00 98.1 65 18 106/66 (79) 97 12/14/18 00:00 65 Intake and Output 12/13/18 12/14/18 19:00 07:00 Intake Total 1800 ml 803 ml Output Total 700 ml Balance 1800 ml 103 ml Intake Oral 600 ml IV Total 1200 ml 803 ml Output Urine Total 700 ml # Voids 4 Height (Feet): 5 Height (Inches): 2.00 Weight (Pounds): 136 Objective WDWN NCAT supple CTA RRR abd soft ND no edema calm, interactive Jose L Shepard MD December 14, 2018 21:16
[2018-12-15] VITALS (11 sets, daily range): BP systolic 127–159; BP diastolic 59–90
[2018-12-15] MEDS: oxyCODONE 5mg IR tab ORAL PRN (01:55)
[2018-12-15] MEDS: NovoLOG Insulin Flexpen SUBQ SCH ×4 (06:17→20:20)
--- NOTE | 2018-12-15 07:11 | Anethesia Preoperative Eval ---
Anesthesia Pre-op PMH/ROS General Date of Evaluation: December 15, 2018 Time of Evaluation: 07:10 Anesthesiologist: margi ASA Score: ASA 4 Mallampati Score Class I : Soft palate, uvula, fauces, pillars visible Class II: Soft palate, uvula, fauces visible Class III: Soft palate, base of uvula visible Class IV: Only hard plate visible Mallampati Classification: Class II Surgeon: zuleyma Diagnosis: abdominal pain Surgical Procedure: egd Anesthesia History: none Social History: smoking - nonsmoker Family History: no anesthesia problems Allergies: Coded Allergies: No Known Allergies (Unverified , 12/11/18) Medications: see eMAR Patient NPO?: Yes Past Medical History Cardiovascular: Reports: HTN, other - hypercholesterolemia Endocrine: Reports: DM Anesthesia Pre-op Phys. Exam Physician Exam Last Vital Signs Date Time Temp Pulse Resp B/P (MAP) Pulse Ox O2 Delivery O2 Flow Rate FiO2 12/15/18 04:00 66 12/15/18 04:00 98.1 16 137/74 (95) 96 12/14/18 21:00 Room Air Room Air Constitutional: NAD Neurologic: CN 2-12 intact Cardiovascular: RRR Respiratory: CTA Gastrointestinal: S/NT/ND Airway Exam Mallampati Score: Class II MO: limited Neck: flexible TMD: 2fb ROM: limited Anesthesia Pre-op A/P Labs Labs Test 12/12/18 12:55 12/13/18 06:00 Stool Occult Blood Negative (NEGATIVE) White Blood Count 5.5 K/UL (4.8-10.8) Red Blood Count 3.47 M/UL (4.20-5.40) Hemoglobin 11.2 G/DL (12.0-16.0) Hematocrit 32.3 % (37.0-47.0) Mean Corpuscular Volume 93 FL (80-99) Mean Corpuscular Hemoglobin 32.2 PG (27.0-31.0) Mean Corpuscular Hemoglobin Concent 34.5 G/DL (32.0-36.0) Red Cell Distribution Width 12.9 % (11.6-14.8) Platelet Count 153 K/UL (150-450) Mean Platelet Volume 6.6 FL (6.5-10.1) Neutrophils (%) (Auto) 65.4 % (45.0-75.0) Lymphocytes (%) (Auto) 23.9 % (20.0-45.0) Monocytes (%) (Auto) 9.1 % (1.0-10.0) Eosinophils (%) (Auto) 0.8 % (0.0-3.0) Basophils (%) (Auto) 0.8 % (0.0-2.0) Iron Level 48 ug/dL (50-175) Total Iron Binding Capacity 221 ug/dL (250-450) Percent Iron Saturation 22 % (15-50) Unsaturated Iron Binding 173 ug/dL (112-346) Risk Assessment & Plan Assessment: asa4 Plan: mac Status Change Before Surgery: No Pre-Antibiotics Drug: Chely Vaz MD December 15, 2018 07:11
[2018-12-15] MEDS ORDERED: Midazolam 2mg/2ml Inj IVP PRN (07:15)
[2018-12-15] MEDS ORDERED: fentaNYL 100 mcg/2 mL IV PRN (07:15)
[2018-12-15] MEDS ORDERED: Atropine Inj 1mg/10ml Syr IV PRN (07:15)
[2018-12-15] MEDS ORDERED: DiphenhydrAMINE 50mg/ml Inj IVP PRN (07:15)
--- NOTE | 2018-12-15 07:30 | NUR ---
NURSE NOTES: Report received from FALLON Sanchez. Pt shows no signs of distress, no SOB, no pain. A+Ox3. Respirations are even and unlabored on room air. IV site is patent, intact, and running fluids at prescribed rate. Bed is at lowest position, brakes engaged, siderails x3, bed alarm on, and call light within reach. Pt is in stable condition at this time; will continue to monitor.
[2018-12-15] MEDS: Docusate 250mg cap ORAL SCH (09:00)
[2018-12-15] MEDS: Pantoprazole Inj IVP SCH (09:00)
[2018-12-15] MEDS: Glimepiride 4mg tab ORAL SCH (09:00)
[2018-12-15] MEDS: Metoprolol Succinate XL 25mg tab ORAL SCH (09:00)
[2018-12-15] MEDS: Lyrica 25mg cap ORAL SCH ×3 (09:00→17:00)
--- NOTE | 2018-12-15 09:24 | NUR ---
NURSE NOTES: Pt off floor for procedure. Off tele order in.
[2018-12-15] MEDS ORDERED: NS 500ML IVPB ONE (09:50)
--- NOTE | 2018-12-15 09:50 | General Progress Note ---
Assessment/Plan Assessment/Plan: Assessment - epigastric pain - improved, possibly due to PUD vs chronic bebeto - Nausea, anorexia - ? biliary process, ? SOD, ? PUD - mild elevation in LFT - anemia, with OB (-) stools Recommendations - PPI - Hold NSAID - push po diet - EGD today Subjective Allergies: Coded Allergies: No Known Allergies (Unverified , 12/11/18) Subjective Above noted better today tolerating po HIDA noted: "Delayed visualization of the gallbladder between 1 - 3.5 hours. Findings may suggest chronic cholecystitis." "Delayed passage of radiotracer into the small bowel possibly suggesting possible sphincter of Oddi dysfunction." "Gallbladder ejection fraction images to be obtained." Stool OB (-) Objective Last 24 Hour Vital Signs Date Time Temp Pulse Resp B/P (MAP) Pulse Ox O2 Delivery O2 Flow Rate FiO2 12/15/18 08:00 97.4 73 20 128/59 (82) 94 12/15/18 04:00 66 12/15/18 04:00 98.1 66 16 137/74 (95) 96 12/15/18 00:00 97.9 92 18 130/83 (99) 71 12/15/18 00:00 92 12/14/18 21:00 Room Air Room Air 12/14/18 20:00 98.2 64 18 155/86 (109) 98 12/14/18 16:00 68 12/14/18 12:00 78 12/14/18 12:00 98.0 75 23 137/77 (97) 97 Intake and Output 12/14/18 12/15/18 19:00 07:00 Intake Total 240 ml 270 ml Output Total 1000 ml Balance 240 ml -730 ml Intake Oral 240 ml 270 ml Output Urine Total 1000 ml # Voids 1 Height (Feet): 5 Height (Inches): 5.00 Weight (Pounds): 136 Objective WDWN NCAT supple CTA RRR abd soft ND no edema calm, interactive Jose L Shepard MD December 15, 2018 09:50
--- NOTE | 2018-12-15 09:51 | Pre-Procedure Note/Attestation ---
Pre-Procedure Note/Attestation Complete Prior to Procedure Planned Procedure: not applicable Procedure Narrative: EGD Indications for Procedure Pre-Operative Diagnosis: abd pain, vomiting Attestation I attest that I discussed the nature of the procedure; its benefits; risks and complications; and alternatives (and the risks and benefits of such alternatives ), prior to the procedure, with the patient (or the patient's legal equal opportunity representative). I attest that, if there was a reasonable possibility of needing a blood transfusion, the patient (or the patient's legal equal opportunity representative) was given the [facility] standardized written summary, pursuant to the Jarad Clair Blood Safety Act ([place] Health and Safety Code # 1645, as amended). I attest that I re-evaluated the patient just prior to the surgery and that there has been no change in the patient's H&P, except as documented below: Jose L Shepard MD December 15, 2018 09:51
[2018-12-15] MEDS ORDERED: Lidocaine 1% MPF 10mg/ml 5ml ONE (10:00)
[2018-12-15] MEDS ORDERED: Propofol 200mg/20ml IV ONE (10:00)
--- NOTE | 2018-12-15 10:28 | General Progress Note ---
Assessment/Plan Assessment/Plan: IMPRESSION: Abdominal pain, noted constipation, hyponatremia, chronic pain, diabetes, and hypertension. anemia PLAN care noted await further gi recommendations EGD pending this am CT noted finalize care dispo possibly today impression, plan, and exam edited and reviewed in detail care discussed with RN Subjective Allergies: Coded Allergies: No Known Allergies (Unverified , 12/11/18) Subjective gi noted and discussed care reviewed EGD today Objective Last 24 Hour Vital Signs Date Time Temp Pulse Resp B/P (MAP) Pulse Ox O2 Delivery O2 Flow Rate FiO2 12/15/18 09:00 Room Air Room Air 12/15/18 09:00 73 128/59 12/15/18 08:00 97.4 73 20 128/59 (82) 94 12/15/18 08:00 75 12/15/18 04:00 66 12/15/18 04:00 98.1 66 16 137/74 (95) 96 12/15/18 00:00 97.9 92 18 130/83 (99) 71 12/15/18 00:00 92 12/14/18 21:00 Room Air Room Air 12/14/18 20:00 98.2 64 18 155/86 (109) 98 12/14/18 16:00 68 12/14/18 12:00 78 12/14/18 12:00 98.0 75 23 137/77 (97) 97 Intake and Output 12/14/18 12/15/18 18:59 06:59 Intake Total 240 ml 270 ml Output Total 1000 ml Balance 240 ml -730 ml Intake Oral 240 ml 270 ml Output Urine Total 1000 ml # Voids 1 Height (Feet): 5 Height (Inches): 5.00 Weight (Pounds): 136 Objective NAD HEENT: Fairly negative. NECK: Supple. Oropharynx essentially clear. LUNGS: Fairly clear. Symmetric. No rhonchi or wheezes. CARDIAC: Normal S1, S2. Regular rate and rhythm without murmurs, rubs, or gallops. ABDOMEN: Soft, nontender, nondistended. no HSM EXTREMITIES: No cyanosis, clubbing, or edema. NEUROLOGICAL: Appears to be grossly nonfocal. Humphrey Vergara MD December 15, 2018 10:28
--- NOTE | 2018-12-15 10:51 | Immediate Post-Op Evaluation ---
Immediate Post-Op Evalulation Immediate Post-Op Evalulation Procedure: egd w/bx Date of Evaluation: December 15, 2018 Time of Evaluation: 10:49 IV Fluids: 200ml 0.9ns Blood Products: none Estimated Blood Loss: negligible Blood Pressure Systolic: 134 Blood Pressure Diastolic: 89 Pulse Rate: 85 Respiratory Rate: 18 O2 Sat by Pulse Oximetry: 100 Temperature (Fahrenheit): 98.0 Pain Score (1-10): 0 Nausea: No Vomiting: No Complications none Patient Status: awake, reacts, patent Hydration Status: adequate Drug: Chely Vaz MD December 15, 2018 10:51
--- NOTE | 2018-12-15 10:52 | 48 Hour Post Anesthesia Eval ---
Post Anesthesia Evaluation Procedure: egd w/bx Date of Evaluation: December 15, 2018 Time of Evaluation: 10:51 Blood Pressure Systolic: 137 0: 74 Pulse Rate: 85 Respiratory Rate: 18 Temperature (Fahrenheit): 98.0 O2 Sat by Pulse Oximetry: 100 Airway: patent Nausea: No Vomiting: No Pain Intensity: 0 Hydration Status: adequate Cardiopulmonary Status: stable Mental Status/LOC: patient returned to baseline Post-Anesthesia Complications: none Follow-up care needed: N/A Chely Contreras MD December 15, 2018 10:52
--- NOTE | 2018-12-15 11:24 | Endoscopy Procedure Note ---
Endoscopy Procedure Note General Indication for Procedure: abd pain, Procedures Performed: EGD Operative Findings/Diagnosis: normal Specimen: yes Pt Tolerated Procedure Well: Yes Estimated Blood Loss: none Anesthesia Anesthesiologist: teresa cobian Anesthesia: MAC Medications Medication Given: see anesthesia record Inserted Devices Implant(s) used?: Yes GI Core Measures 50 yrs or older w/o bx or poly: Not Applicable 10yrs. F/U not recommended: Not Applicable If not recommended, why?: Jose L Shepard MD December 15, 2018 11:24
--- NOTE | 2018-12-15 11:26 | Brief Operative Note ---
Immediate Post Operative Note Operative Note Chief Complaint: abd pain Pre-op Diagnosis: abd pain, vomiting Procedure: EGD Post-op Diagnosis: normal Surgeon: zuleyma Anesthesiologist: teresa cobian Anesthesia: MAC Specimen: yes Complications: none Condition: stable Fluids: recorded Estimated Blood Loss: none Drains: none Implant(s) used?: No Jose L Shepard MD December 15, 2018 11:26
[2018-12-15] MEDS: LORazepam 1mg tab ORAL PRN ×2 (16:55→22:03)
[2018-12-15] MEDS: traMADol 50mg tab ORAL PRN ×2 (16:55→22:56)
--- NOTE | 2018-12-15 18:45 | Operative Note - Dictated ---
DATE OF OPERATION: 12/15/2018 PROCEDURE: Upper gastrointestinal endoscopy with enteroscopy and biopsy. SURGEON: Jose L Shepard M.D. ANESTHESIA: Please see the separate anesthesiologist notes for details. PRE-ENDOSCOPIC DIAGNOSIS: Vomiting with dark stools. POST-ENDOSCOPIC DIAGNOSIS: Normal upper gastrointestinal endoscopy as well as enteroscopy status post biopsy. DESCRIPTION OF PROCEDURE: The procedure, its risks, indications, alternatives, and possible complications were explained and an informed consent was obtained. The patient was then sedated in the left lateral decubitus position and the pediatric colonoscope was introduced into oropharynx and advanced to about 20 to 30 centimeters beyond the duodenum. The colonoscope was then gradually withdrawn and the mucosa was examined carefully. Examination of the upper gastrointestinal mucosa did not reveal any abnormalities. Random biopsies of the duodenum and stomach were sent to pathology for review. The colonoscope was removed and the patient was sent to recovery in good condition. COMPLICATIONS: None. RECOMMENDATIONS: 1. Follow up biopsy results. 2. Resume oral diet. Jose L Shepard M.D. DR: MARAL JOB#: [id number] CC:
--- NOTE | 2018-12-15 18:59 | NUR ---
HAND-OFF: Report given to FALLON Cifuentes. Pt is in stable condition; plan of care endorsed.
--- NOTE | 2018-12-15 19:15 | NUR ---
NURSE NOTES: Received report from Jackie RN, pt. in bed awake, Yoruba speaking, no signs or symptoms of acute cardiac or respiratory distress noted, bed in lowest position and call light within easy reach, bed alarm on, side rails up x's3 and safety brakes engaged, pt. aware to ask for assist when trying to sit up, pt. appears to be sating well on room air at 98%- no distress noted, pt. appears to be resting comfortably, pt. is clean and dry, RT. hand 22G NS running at 100cc/hr- IV patent and intact, safety measures continued, will continue with plan of care.
--- NOTE | 2018-12-15 23:30 | NUR ---
NURSE NOTES: called son regarding pt. not taking her medication Ultram she is asking for pain- explained to Son that she was given Tylenol earlier because she was not due for her Ultram - son aware- Explained to son that Japanese speaking nurse Kade explained to pt. as well and that she would be getting Ultram at 2300 12/15/18.
--- NOTE | 2018-12-15 23:55 | NUR ---
NURSE NOTES: left msg for DR. amor, regarding pt. wanting a sleeping pill she had before, pt. was explained that sleeping was given to her Remeron and that Restoril was d/c - pt. still asking for another sleeping pill- waiting for call back from doctor.
[2018-12-16] VITALS: BP 126/84
--- NOTE | 2018-12-16 00:09 | NUR ---
NURSE NOTES: DR. Shepard called- per doctor to cancel Remeron and put pt. back on Restoril 15mg as before -can give one now and aware pt. received Remeron at 2010 yesterday- orders carried out.
[2018-12-16 04:00] VITALS: BP 124/69
[2018-12-16] MEDS: NovoLOG Insulin Flexpen SUBQ SCH ×4 (05:30→21:18)
--- NOTE | 2018-12-16 07:27 | NUR ---
HAND-OFF: Report given to Guillermo Rn, pt. remains stable and no signs of distress noted.
--- NOTE | 2018-12-16 07:31 | NUR ---
NURSE NOTES: Pt received from FALLON Cifuentes currently asleep and resting in bed with no s/s of acute distress. IV site asymptomatic and patent, on NS at 100 ml/hr. Bed in lowest position, bed alarm on. Call light and belongings within reach. SCDs off, per pt refusal. BSC at bedside. Will continue to monitor pt accordingly.
[2018-12-16 08:00] VITALS: BP 123/82
[2018-12-16] MEDS: Docusate 250mg cap ORAL SCH (08:26)
[2018-12-16] MEDS: Glimepiride 4mg tab ORAL SCH (08:27)
[2018-12-16] MEDS: Lyrica 25mg cap ORAL SCH ×3 (08:27→17:14)
[2018-12-16] MEDS: Metoprolol Succinate XL 25mg tab ORAL SCH (08:27)
--- NOTE | 2018-12-16 08:49 | General Progress Note ---
Assessment/Plan Assessment/Plan: IMPRESSION: Abdominal pain, noted constipation, hyponatremia, chronic pain, diabetes, and hypertension. anemia PLAN care noted dc planning d/w gi monitor for change home health on discharge impression, plan, and exam edited and reviewed in detail care discussed with RN Subjective Allergies: Coded Allergies: No Known Allergies (Unverified , 12/11/18) Subjective gi noted and discussed underwent EGD Objective Last 24 Hour Vital Signs Date Time Temp Pulse Resp B/P (MAP) Pulse Ox O2 Delivery O2 Flow Rate FiO2 12/16/18 08:27 86 123/82 12/16/18 04:00 97.8 69 18 124/69 (87) 96 12/16/18 04:00 65 12/16/18 00:00 97.6 80 20 126/84 (98) 98 12/16/18 00:00 96 12/15/18 23:26 98.9 12/15/18 21:00 Room Air Room Air 12/15/18 20:30 98.9 12/15/18 20:00 98.0 88 18 132/90 (104) 99 12/15/18 20:00 84 12/15/18 16:00 98.9 82 20 127/72 (90) 99 12/15/18 16:00 114 12/15/18 12:00 84 12/15/18 11:16 97.8 79 17 159/79 98 Room Air 12/15/18 11:10 86 18 154/84 99 Room Air 12/15/18 11:00 81 17 155/85 100 Room Air 12/15/18 10:52 85 18 100 12/15/18 10:51 85 18 100 12/15/18 10:50 79 14 150/82 97 Room Air 12/15/18 10:45 85 17 140/88 100 Room Air 12/15/18 10:37 98.0 81 18 134/89 100 Room Air 12/15/18 09:00 Room Air Room Air 12/15/18 09:00 73 128/59 Intake and Output 12/15/18 12/16/18 19:00 07:00 Intake Total 900 ml 925 ml Balance 900 ml 925 ml Intake Oral 200 ml IV Total 700 ml 925 ml # Voids 2 4 Height (Feet): 5 Height (Inches): 5.00 Weight (Pounds): 136 Objective NAD HEENT: Fairly negative. NECK: Supple. Oropharynx essentially clear. LUNGS: Fairly clear. Symmetric. No rhonchi or wheezes. CARDIAC: Normal S1, S2. Regular rate and rhythm without murmurs, rubs, or gallops. ABDOMEN: Soft, nontender, nondistended. no HSM EXTREMITIES: No cyanosis, clubbing, or edema. NEUROLOGICAL: Appears to be grossly nonfocal. Humphrey Vergara MD December 16, 2018 08:49
--- NOTE | 2018-12-16 11:26 | NUR ---
CASE MANAGEMENT:REVIEW 12/16/18 SI: ABDOMINAL/EPIGASTRIC PAIN CHOLECYSTITIS vs PANCREATITIS vs CONSTIPATION S/P EGD AND HIDA SCAN 97.8 65 18 124/69 96% ON RA IS: IVF@100/HR PROTONIX PO QD TOPROL XL PO QD ACTOS PO QD AMARYL PO QD LYRICA PO TID : TELEMETRY STATUS DCP: FROM HOME
[2018-12-16 12:00] VITALS: BP 118/80
[2018-12-16] MEDS: traMADol 50mg tab ORAL PRN ×2 (13:23→21:20)
--- NOTE | 2018-12-16 15:47 | NUR ---
NURSE NOTES: Pt complained of indigestion with meals but no vomiting witnessed, per pt she takes "Creon" at home. RN endorsed to Dr. Vergara and Dr. Shepard, per MDs ok to continue Creon. RN spoke with [facility] pharmacist who stated that the closest medication in pharmacy would be Pancrease (Zenpep). Will carry out orders.
[2018-12-16 16:00] VITALS: BP 120/78
--- NOTE | 2018-12-16 16:16 | General Progress Note ---
Assessment/Plan Assessment/Plan: Assessment - epigastric pain - improved, possibly due to PUD vs chronic bebeto - Nausea, anorexia - ? biliary process, ? SOD, ? PUD - mild elevation in LFT - anemia, with OB (-) stools Recommendations - PPI - Hold NSAID - push po diet - D/W RN - need documentation of any witnessed vomiting Subjective Allergies: Coded Allergies: No Known Allergies (Unverified , 12/11/18) Subjective Above noted better today tolerating po says had some vomiting last night no RN report of vomiting ate the whole plate of breakfast Objective Last 24 Hour Vital Signs Date Time Temp Pulse Resp B/P (MAP) Pulse Ox O2 Delivery O2 Flow Rate FiO2 12/16/18 12:00 74 12/16/18 12:00 98.0 93 18 118/80 (93) 95 12/16/18 09:00 Room Air Room Air 12/16/18 08:27 86 123/82 12/16/18 08:00 97.4 86 18 123/82 (96) 94 12/16/18 08:00 72 12/16/18 04:00 97.8 69 18 124/69 (87) 96 12/16/18 04:00 65 12/16/18 00:00 97.6 80 20 126/84 (98) 98 12/16/18 00:00 96 12/15/18 23:26 98.9 12/15/18 21:00 Room Air Room Air 12/15/18 20:30 98.9 12/15/18 20:00 98.0 88 18 132/90 (104) 99 12/15/18 20:00 84 Intake and Output 12/15/18 12/16/18 18:59 06:59 Intake Total 800 ml 925 ml Balance 800 ml 925 ml Intake Oral 200 ml IV Total 600 ml 925 ml # Voids 2 4 Height (Feet): 5 Height (Inches): 5.00 Weight (Pounds): 136 Objective WDWN NCAT supple CTA RRR abd soft ND no edema calm, interactive Jose L Shepard MD December 16, 2018 16:16
[2018-12-16] MEDS: Pancrelipase Dr Cap ORAL SCH (17:14)
--- NOTE | 2018-12-16 18:59 | NUR ---
NURSE NOTES: Pt began asking for constipation PRN complaining that she feels constipated. RN left message with Dr. Vergara. Currently awaiting callback, will endorse to night nurse.
--- NOTE | 2018-12-16 19:35 | NUR ---
HAND-OFF: Report given to FALLON Gil. No acute s/s of distress noted.
--- NOTE | 2018-12-16 19:40 | NUR ---
NURSE NOTES: Received Pt is resting on the bed and awake and alert but forgetful. No sign of acute distress noted. On Tele monitor with SR. Iv site intact and no sign of infiltration noted. Denied pain on abdomen and no nausea and vomiting noted. Educated Pt to use call light for help. Placed fall precaution. Will continue to care plan.
[2018-12-16 20:00] VITALS: BP 110/67
[2018-12-16] MEDS ORDERED: Fleet's Mineral Oil Enema RECTAL PRN (20:15)
[2018-12-16] MEDS ORDERED: Milk of Magnesia 30ml Ud ORAL PRN (20:15)
[2018-12-17] VITALS: BP 127/80
[2018-12-17 04:00] VITALS: BP 127/79
[2018-12-17] MEDS: NovoLOG Insulin Flexpen SUBQ SCH ×4 (06:30→20:56)
--- NOTE | 2018-12-17 07:40 | NUR ---
NURSE NOTES: Received report from Jeffery LEHMAN. Pt in bed asleep but arousable to verbal stimuli. AOX2, No c/o pain. No signs of distress noted. Bed in lowest position and locked. Noted IV in right hand 22G running @100ml/hr intact and asymptomatic. On room air. Sinus rhythm reported during shift leader. Will continue to plan of care.
--- NOTE | 2018-12-17 07:41 | NUR ---
HAND-OFF: Report given to FALLON Worley. Pt is resting on the bed and no sign of acute distress noted.
[2018-12-17 08:00] VITALS: BP 128/91
[2018-12-17] MEDS: Metoprolol Succinate XL 25mg tab ORAL SCH (08:22)
[2018-12-17] MEDS: Lyrica 25mg cap ORAL SCH ×3 (08:22→17:29)
[2018-12-17] MEDS: Docusate 250mg cap ORAL SCH (08:22)
[2018-12-17] MEDS: Pancrelipase Dr Cap ORAL SCH (08:22)
[2018-12-17] MEDS: Glimepiride 4mg tab ORAL SCH (08:22)
--- NOTE | 2018-12-17 09:20 | Pulmonology Progress Note ---
Assessment/Plan Assessment/Plan Pulmonary Progress Note Assessment/Plan: IMPRESSION: Abdominal pain, noted constipation, hyponatremia- improved, chronic pain, diabetes, and hypertension. anemia HIDA delayed GB filling LE Dupplex negative CT Abdo nil acute GI following PLAN care noted dc planning d/w gi monitor for change home health on discharge impression, plan, and exam edited and reviewed in detail care discussed with RN Subjective Allergies: Coded Allergies: No Known Allergies (Unverified , 12/11/18) Subjective gi noted and discussed underwent EGD Objective Vital Signs Noted LABS noted Height (Feet): 5 Height (Inches): 5.00 Weight (Pounds): 136 Objective NAD HEENT: Fairly negative. NECK: Supple. Oropharynx essentially clear. LUNGS: Fairly clear. Symmetric. No rhonchi or wheezes. CARDIAC: Normal S1, S2. Regular rate and rhythm without murmurs, rubs, or gallops. ABDOMEN: Soft, nontender, nondistended. no HSM EXTREMITIES: No cyanosis, clubbing, or edema. NEUROLOGICAL: Appears to be grossly nonfocal. Subjective ROS Limited/Unobtainable: No Allergies: Coded Allergies: No Known Allergies (Unverified , 12/11/18) Objective Last 24 Hour Vital Signs Date Time Temp Pulse Resp B/P (MAP) Pulse Ox O2 Delivery O2 Flow Rate FiO2 12/17/18 09:00 Room Air Room Air 12/17/18 08:22 78 128/91 12/17/18 08:00 97.0 78 18 128/91 (103) 94 12/17/18 04:38 73 12/17/18 04:00 97.2 78 18 127/79 (95) 95 12/17/18 00:00 73 12/17/18 00:00 97.8 71 18 127/80 (96) 95 12/16/18 21:00 Room Air Room Air 12/16/18 20:00 77 12/16/18 20:00 98.3 80 18 110/67 (81) 95 12/16/18 16:00 77 12/16/18 16:00 97.3 81 18 120/78 (92) 95 12/16/18 12:00 74 12/16/18 12:00 98.0 93 18 118/80 (93) 95 Intake and Output 12/16/18 12/17/18 19:00 07:00 Intake Total 700 ml 1320 ml Balance 700 ml 1320 ml Intake Oral 600 ml 120 ml IV Total 100 ml 1200 ml # Voids 4 3 Current Medications Medications (Trade) Dose Ordered Sig/Ronald Route PRN Reason Start Time Stop Time Status Last Admin Dose Admin Acetaminophen (Tylenol) 650 mg Q6H PRN ORAL Mild Pain/Temp > 100.5 12/13/18 16:15 01/12/19 16:14 12/16/18 08:28 Amylase/Lipase/ Protease (Zenpep) 1 ea DAILY ORAL 12/16/18 16:30 01/15/19 16:29 12/17/18 08:22 Atorvastatin Calcium (Lipitor) 10 mg BEDTIME ORAL 12/11/18 21:00 01/10/19 20:59 12/16/18 21:18 Bisacodyl (Dulcolax) 10 mg DAILYPRN PRN RECTAL Constipation 12/16/18 20:15 01/15/19 20:14 Dextrose (Dextrose 50%) 25 ml Q30M PRN IV Hypoglycemia 12/11/18 17:24 01/10/19 17:23 12/12/18 05:52 Dextrose (Dextrose 50%) 50 ml Q30M PRN IV Hypoglycemia 12/11/18 17:24 01/10/19 17:23 Docusate Sodium (Colace) 250 mg DAILY ORAL 12/12/18 09:00 01/11/19 08:59 12/17/18 08:22 Glimepiride (Amaryl) 4 mg DAILY@0800 ORAL 12/12/18 08:00 01/11/19 07:59 12/17/18 08:22 Insulin Aspart (NovoLOG) BEFORE MEALS AND HS SUBQ 12/11/18 21:00 01/10/19 20:59 12/16/18 21:18 Lorazepam (Ativan) 1 mg Q4H PRN ORAL For Anxiety 12/15/18 16:52 12/22/18 16:51 12/15/18 22:03 Magnesium Hydroxide (Mom) 30 ml DAILYPRN PRN ORAL Constipation 12/16/18 20:15 01/15/19 20:14 12/17/18 05:53 Metoprolol Succinate (Toprol XL) 25 mg DAILY ORAL 12/12/18 09:00 01/11/19 08:59 12/17/18 08:22 Mineral Oil (Fleet's Mineral Oil Enema) 133 ml DAILY PRN RECTAL Constipation 12/16/18 20:15 01/15/19 20:14 Ondansetron HCl (Zofran) 4 mg Q6H PRN IVP Nausea & Vomiting 12/11/18 17:25 01/10/19 17:24 12/15/18 14:07 Ondansetron HCl (Zofran) 4 mg Q6H PRN ORAL Nausea & Vomiting 12/11/18 17:25 01/10/19 17:24 12/14/18 18:48 Pantoprazole (Protonix) 40 mg DAILY ORAL 12/16/18 09:00 01/15/19 08:59 12/17/18 08:22 Pioglitazone HCl (Actos) 15 mg DAILY ORAL 12/12/18 09:00 01/11/19 08:59 12/17/18 08:22 Pregabalin (Lyrica) 25 mg THREE TIMES A DAY ORAL 12/11/18 18:00 01/10/19 17:59 12/17/18 08:22 Sodium Chloride 1,000 ml @ 100 mls/hr Q10H IV 12/11/18 18:00 01/10/19 17:59 12/17/18 03:32 Temazepam (Restoril) 15 mg HSPRN PRN ORAL Insomnia 12/16/18 00:15 12/23/18 00:14 12/16/18 21:19 Tramadol HCl (Ultram) 50 mg Q6H PRN ORAL Severe Pain (Pain Scale 7-10) 12/15/18 16:51 12/22/18 16:50 12/16/18 21:20 Jose Elias Mark MD December 17, 2018 09:20
[2018-12-17] MEDS ORDERED: D5NS 1,000 ML IV SCH (11:00)
[2018-12-17 12:00] VITALS: BP 118/81
[2018-12-17] MEDS: traMADol 50mg tab ORAL PRN ×2 (14:29→20:25)
[2018-12-17 16:00] VITALS: BP 117/79
--- NOTE | 2018-12-17 17:15 | General Progress Note ---
Assessment/Plan Assessment/Plan: Assessment - epigastric pain - improved, possibly due to PUD vs chronic bebeto - resolving - Nausea, anorexia - ? biliary process, ? SOD, ? PUD - resolving - mild elevation in LFT - anemia, with OB (-) stools Recommendations - PPI - Hold NSAID - push po diet - observe for further N/V Subjective Allergies: Coded Allergies: No Known Allergies (Unverified , 12/11/18) Subjective Above noted better today d/w RN no further N/V noted Objective Last 24 Hour Vital Signs Date Time Temp Pulse Resp B/P (MAP) Pulse Ox O2 Delivery O2 Flow Rate FiO2 12/17/18 16:00 75 12/17/18 12:00 98.0 76 18 118/81 (93) 95 12/17/18 12:00 77 12/17/18 09:00 Room Air Room Air 12/17/18 08:22 78 128/91 12/17/18 08:00 75 12/17/18 08:00 97.0 78 18 128/91 (103) 94 12/17/18 04:38 73 12/17/18 04:00 97.2 78 18 127/79 (95) 95 12/17/18 00:00 73 12/17/18 00:00 97.8 71 18 127/80 (96) 95 12/16/18 21:00 Room Air Room Air 12/16/18 20:00 77 12/16/18 20:00 98.3 80 18 110/67 (81) 95 Intake and Output 12/16/18 12/17/18 18:59 06:59 Intake Total 700 ml 1320 ml Balance 700 ml 1320 ml Intake Oral 600 ml 120 ml IV Total 100 ml 1200 ml # Voids 4 3 Height (Feet): 5 Height (Inches): 5.00 Weight (Pounds): 136 Objective WDWN NCAT supple CTA RRR abd soft ND no edema calm, interactive Jose L Shepard MD December 17, 2018 17:15
--- NOTE | 2018-12-17 19:30 | NUR ---
HAND-OFF: Report given to Lu LEHMAN. Pt remains stable..
--- NOTE | 2018-12-17 19:45 | NUR ---
NURSE NOTES: Received patient from Min RN. Patient awake, alert, oriented x3, calm and cooperative. Bed in low position, locked, alarm on. Call light within reach.
[2018-12-17 20:00] VITALS: BP 125/78
--- NOTE | 2018-12-17 20:30 | NUR ---
NURSE NOTES: Patient became angry. Used Kym[employer] to translate. Patient was upset because she wanted the "capsule" for pain. Explained to patient that the pain medication is tramadol and it is the white tablet. Patient continues to be upset and refuses to take the medication. Patient's son "Remi" arrived in the room and explained to the patient that the medication is for pain. Patient agreed to take the medication.
--- NOTE | 2018-12-17 21:40 | NUR ---
NURSE NOTES: Patient angry again. Wanted to move from current room 202-1 back to her old room 201-1. Staff explained that there is another patient in the room, patient became more angry. Patient stood by the door, refusing to get back in bed. When attempting to call her son to talk to her, patient took the phone and hung up on him. Charge nurse notified and patient was moved to 201-1.
--- NOTE | 2018-12-17 23:45 | NUR ---
NURSE NOTES: Patient started crying and saying "no sleep." Patient received restoril 15mg po earlier. Administered ativan 1mg po prn for anxiety.
[2018-12-17] MEDS: LORazepam 1mg tab ORAL PRN (23:49)
[2018-12-18 04:00] VITALS: BP 143/78
[2018-12-18] MEDS: NovoLOG Insulin Flexpen SUBQ SCH ×4 (06:49→20:27)
--- NOTE | 2018-12-18 07:21 | NUR ---
HAND-OFF: Report given to Kassi LEHMAN. Patient asleep in bed, on room air, no signs of distress. Bed in low position, locked, alarm on, call light within reach. Plan of care endorsed.
--- NOTE | 2018-12-18 07:45 | NUR ---
NURSE NOTES: Received report from FALLON Lilly. Patient in bed resting, no active s/s cardiac, respiratory distress noticed at this time. Patient on room air, SR with HR 86, AOx4, c/o back pain 5/10. IV on right hand 22G, asymptomatic, patent, intact. Bed in lowest position, side rails upx3, call light within reach, bed alarm on. Will continue to monitor.
[2018-12-18 08:00] VITALS: BP 140/99
[2018-12-18] MEDS: Docusate 250mg cap ORAL SCH (08:17)
[2018-12-18] MEDS: Metoprolol Succinate XL 25mg tab ORAL SCH (08:17)
[2018-12-18] MEDS: Pancrelipase Dr Cap ORAL SCH (08:17)
[2018-12-18] MEDS: Lyrica 25mg cap ORAL SCH ×3 (08:18→17:09)
[2018-12-18] MEDS: Glimepiride 4mg tab ORAL SCH (08:18)
--- NOTE | 2018-12-18 09:31 | General Progress Note ---
Assessment/Plan Assessment/Plan: Assessment - epigastric pain - resolving - Nausea, anorexia - resolving - mild elevation in LFT - anemia, with OB (-) stools Recommendations - PPI - Hold NSAID - push po diet - observe for further N/V Subjective Allergies: Coded Allergies: No Known Allergies (Unverified , 12/11/18) Subjective Above noted tolerating PO d/w RN no further N/V noted Objective Last 24 Hour Vital Signs Date Time Temp Pulse Resp B/P (MAP) Pulse Ox O2 Delivery O2 Flow Rate FiO2 12/18/18 08:17 115 140/99 12/18/18 08:00 98.2 115 20 140/99 (113) 92 12/18/18 04:00 98.3 86 20 143/78 (99) 93 12/18/18 03:41 84 12/17/18 23:38 82 12/17/18 21:00 Room Air Room Air 12/17/18 20:00 100.3 85 20 125/78 (94) 97 12/17/18 16:00 75 12/17/18 16:00 97.6 77 18 117/79 (92) 95 12/17/18 12:00 98.0 76 18 118/81 (93) 95 12/17/18 12:00 77 Intake and Output 12/17/18 12/18/18 19:00 07:00 Intake Total 1500 ml 1115 ml Balance 1500 ml 1115 ml Intake Oral 300 ml IV Total 1200 ml 1115 ml # Voids 4 6 Height (Feet): 5 Height (Inches): 5.00 Weight (Pounds): 136 Objective WDWN NCAT supple CTA RRR abd soft ND no edema calm, interactive Jose L Shepard MD December 18, 2018 09:31
--- NOTE | 2018-12-18 09:36 | Pulmonology Progress Note ---
Assessment/Plan Assessment/Plan Pulmonary Progress Note Assessment/Plan: IMPRESSION: Abdominal pain, noted constipation, hyponatremia- improved, chronic pain, diabetes, and hypertension. anemia HIDA delayed GB filling LE Dupplex negative CT Abdo nil acute GI following PLAN care noted dc planning d/w gi monitor for change home health on discharge impression, plan, and exam edited and reviewed in detail care discussed with RN Subjective Allergies: Coded Allergies: No Known Allergies (Unverified , 12/11/18) Subjective gi noted and discussed underwent EGD Objective Vital Signs Noted LABS noted Height (Feet): 5 Height (Inches): 5.00 Weight (Pounds): 136 Objective NAD HEENT: Fairly negative. NECK: Supple. Oropharynx essentially clear. LUNGS: Fairly clear. Symmetric. No rhonchi or wheezes. CARDIAC: Normal S1, S2. Regular rate and rhythm without murmurs, rubs, or gallops. ABDOMEN: Soft, nontender, nondistended. no HSM EXTREMITIES: No cyanosis, clubbing, or edema. NEUROLOGICAL: Appears to be grossly nonfocal. Subjective ROS Limited/Unobtainable: No Allergies: Coded Allergies: No Known Allergies (Unverified , 12/11/18) Objective Last 24 Hour Vital Signs Date Time Temp Pulse Resp B/P (MAP) Pulse Ox O2 Delivery O2 Flow Rate FiO2 12/18/18 08:17 115 140/99 12/18/18 08:00 98.2 115 20 140/99 (113) 92 12/18/18 04:00 98.3 86 20 143/78 (99) 93 12/18/18 03:41 84 12/17/18 23:38 82 12/17/18 21:00 Room Air Room Air 12/17/18 20:00 100.3 85 20 125/78 (94) 97 12/17/18 16:00 75 12/17/18 16:00 97.6 77 18 117/79 (92) 95 12/17/18 12:00 98.0 76 18 118/81 (93) 95 12/17/18 12:00 77 Intake and Output 12/17/18 12/18/18 19:00 07:00 Intake Total 1500 ml 1115 ml Balance 1500 ml 1115 ml Intake Oral 300 ml IV Total 1200 ml 1115 ml # Voids 4 6 Current Medications Medications (Trade) Dose Ordered Sig/Ronald Route PRN Reason Start Time Stop Time Status Last Admin Dose Admin Acetaminophen (Tylenol) 650 mg Q6H PRN ORAL Mild Pain/Temp > 100.5 12/13/18 16:15 01/12/19 16:14 12/16/18 08:28 Amylase/Lipase/ Protease (Zenpep) 1 ea DAILY ORAL 12/16/18 16:30 01/15/19 16:29 12/18/18 08:17 Atorvastatin Calcium (Lipitor) 10 mg BEDTIME ORAL 12/11/18 21:00 01/10/19 20:59 12/17/18 20:25 Bisacodyl (Dulcolax) 10 mg DAILYPRN PRN RECTAL Constipation 12/16/18 20:15 01/15/19 20:14 Dextrose (Dextrose 50%) 25 ml Q30M PRN IV Hypoglycemia 12/11/18 17:24 01/10/19 17:23 12/12/18 05:52 Dextrose (Dextrose 50%) 50 ml Q30M PRN IV Hypoglycemia 12/11/18 17:24 01/10/19 17:23 Docusate Sodium (Colace) 250 mg DAILY ORAL 12/12/18 09:00 01/11/19 08:59 12/18/18 08:17 Glimepiride (Amaryl) 4 mg DAILY@0800 ORAL 12/12/18 08:00 01/11/19 07:59 12/18/18 08:18 Insulin Aspart (NovoLOG) BEFORE MEALS AND HS SUBQ 12/11/18 21:00 01/10/19 20:59 12/18/18 06:49 Lorazepam (Ativan) 1 mg Q4H PRN ORAL For Anxiety 12/15/18 16:52 12/22/18 16:51 12/17/18 23:49 Magnesium Hydroxide (Mom) 30 ml DAILYPRN PRN ORAL Constipation 12/16/18 20:15 01/15/19 20:14 12/17/18 05:53 Metoprolol Succinate (Toprol XL) 25 mg DAILY ORAL 12/12/18 09:00 01/11/19 08:59 12/18/18 08:17 Mineral Oil (Fleet's Mineral Oil Enema) 133 ml DAILY PRN RECTAL Constipation 12/16/18 20:15 01/15/19 20:14 Ondansetron HCl (Zofran) 4 mg Q6H PRN IVP Nausea & Vomiting 12/11/18 17:25 01/10/19 17:24 12/15/18 14:07 Ondansetron HCl (Zofran) 4 mg Q6H PRN ORAL Nausea & Vomiting 12/11/18 17:25 01/10/19 17:24 12/14/18 18:48 Pantoprazole (Protonix) 40 mg DAILY ORAL 12/16/18 09:00 01/15/19 08:59 12/18/18 08:18 Pioglitazone HCl (Actos) 15 mg DAILY ORAL 12/12/18 09:00 01/11/19 08:59 12/18/18 08:17 Pregabalin (Lyrica) 25 mg THREE TIMES A DAY ORAL 12/11/18 18:00 01/10/19 17:59 12/18/18 08:18 Sodium Chloride 1,000 ml @ 100 mls/hr Q10H IV 12/11/18 18:00 01/10/19 17:59 12/17/18 23:51 Temazepam (Restoril) 15 mg HSPRN PRN ORAL Insomnia 12/16/18 00:15 12/23/18 00:14 12/17/18 20:43 Tramadol HCl (Ultram) 50 mg Q6H PRN ORAL Severe Pain (Pain Scale 7-10) 12/15/18 16:51 12/22/18 16:50 12/17/18 20:25 Jose Elias Mark MD December 18, 2018 09:36
--- NOTE | 2018-12-18 09:56 | NUR ---
NURSE NOTES: Per Dr. Shepard, CBC, CMP today. Order noted, entered, carried out.
--- NOTE | 2018-12-18 10:14 | NUR ---
CASE MANAGEMENT:REVIEW 12/18/18 SI: ABDOMINAL/EPIGASTRIC PAIN CHOLECYSTITIS vs PANCREATITIS vs CONSTIPATION S/P EGD AND HIDA SCAN T 98.2 HR 115 RR 20 B/P 140/99 SATS 92% ON RA NO LABS TODAY IS: IVF@100 mL/HR PROTONIX PO QD TOPROL XL PO QD ACTOS PO QD AMARYL PO QD LYRICA PO TID : TELEMETRY STATUS DCP: FROM HOME
[2018-12-18 10:32] LABS: HEMATOCRIT 28.3 % (37.0-47.0); HEMOGLOBIN 10.3 G/DL (12.0-16.0); LYMPHOCYTES % (AUTO) 19.6 % (20.0-45.0); MEAN CORPUSCULAR VOLUME 90 FL (80-99); MONOCYTES % (AUTO) 7.3 % (1.0-10.0); PLATELET COUNT 128 K/UL (150-450); RED BLOOD COUNT 3.15 M/UL (4.20-5.40); RED CELL DISTRIBUTION WIDTH 12.9 % (11.6-14.8)
[2018-12-18 10:47] LABS: ALANINE AMINOTRANSFERASE 16 U/L (12-78); ALBUMIN/GLOBULIN RATIO 0.9 (1.0-2.7); ALKALINE PHOSPHATASE 43 U/L (46-116); ANION GAP 8 mmol/L (5-15); ASPARTATE AMINO TRANSFERASE 20 U/L (15-37); BILIRUBIN,TOTAL 0.3 MG/DL (0.2-1.0); BLOOD UREA NITROGEN 12 mg/dL (7-18); CALCIUM 8.3 MG/DL (8.5-10.1); CARBON DIOXIDE 27 MMOL/L (21-32); CHLORIDE 104 MMOL/L (98-107); CREATININE 1.1 MG/DL (0.55-1.30); POTASSIUM 3.2 MMOL/L (3.5-5.1); SODIUM 139 MMOL/L (136-145)
--- NOTE | 2018-12-18 10:57 | NUR ---
Attempted to see patient for eval/tx but patient refused; appears sleepy. Will check again later.
--- NOTE | 2018-12-18 11:53 | NUR ---
NURSE NOTES: Dr. Mark made aware patient K level 3.[address] Mark KCL 20 meq IV once. Order noted, entered, carried out.
[2018-12-18 12:00] VITALS: BP 130/83
--- NOTE | 2018-12-18 13:36 | NUR ---
NURSE NOTES: Per Dr. Mark, transfer patient to [facility] and stated Dr. Vergara is not going to discharge patient today.
[2018-12-18] MEDS ORDERED: Tubing IV Secondary IV ONE (15:52)
[2018-12-18 16:00] VITALS: BP 120/81
[2018-12-18] MEDS ORDERED: Fleet's Mineral Oil Enema RECTAL PRN (18:30)
[2018-12-18] MEDS ORDERED: Milk of Magnesia 30ml Ud ORAL PRN (18:30)
--- NOTE | 2018-12-18 18:34 | NUR ---
TRANSFER TO FLOOR: Patient transferred to 3E, per Dr. Mark. Report given to FALLON Diaz. Belongings and medications given to RN. Family and or S/O informed of transfer.
--- NOTE | 2018-12-18 18:35 | NUR ---
NURSE NOTES: Received report from Kassi Denton RN. Patient a/o x4, Japanese speaking. c/o back pain as 5/10 and pain medicine will be given. IV is patent. Bed in lowest position, call light within reach. Will continue to monitor.
[2018-12-18] MEDS: traMADol 50mg tab ORAL PRN (18:55)
--- NOTE | 2018-12-18 19:30 | NUR ---
HAND-OFF: Report given to FALLON Solis.
--- NOTE | 2018-12-18 19:30 | NUR ---
NURSE NOTES: Patient received sleeping, no acute distress noted at this time. IVF infusing on LFA IV intact and patent. Call light in reach. BSC provided for patient. Will continue to monitor.
[2018-12-18 20:01] VITALS: BP 143/96
[2018-12-18] MEDS: LORazepam 1mg tab ORAL PRN (22:48)
[2018-12-19] MEDS: NovoLOG Insulin Flexpen SUBQ SCH ×4 (06:30→20:37)
--- NOTE | 2018-12-19 07:30 | NUR ---
NURSE NOTES: Patient is in bed asleep but arousable to verbal stimuli. Stable. Patient in bed in locked and lowest position with call light within reach. All safety measures provided. Will continue to monitor.
--- NOTE | 2018-12-19 07:42 | NUR ---
HAND-OFF: Report given to Luna LEHMAN.
[2018-12-19 08:00] VITALS: BP 139/95
--- NOTE | 2018-12-19 08:29 | General Progress Note ---
Assessment/Plan Assessment/Plan: IMPRESSION: Abdominal pain, noted constipation, hyponatremia, chronic pain, diabetes, and hypertension. anemia, nausea PLAN care noted dc planning once cleared by gi advance diet as tolerated monitor for change home health on discharge impression, plan, and exam edited and reviewed in detail care discussed with RN Subjective Allergies: Coded Allergies: No Known Allergies (Unverified , 12/11/18) Subjective gi noted and discussed awaiting further improvement Objective Last 24 Hour Vital Signs Date Time Temp Pulse Resp B/P (MAP) Pulse Ox O2 Delivery O2 Flow Rate FiO2 12/18/18 20:39 Room Air Room Air 12/18/18 20:01 99.3 94 20 143/96 (112) 94 12/18/18 16:00 99.2 87 20 120/81 (94) 94 12/18/18 16:00 83 12/18/18 12:00 97.4 84 18 130/83 (99) 94 12/18/18 11:51 79 12/18/18 09:00 Room Air Room Air Intake and Output 12/18/18 12/19/18 19:00 07:00 Intake Total 240 ml 1450 ml Balance 240 ml 1450 ml Intake Oral 240 ml 350 ml IV Total 1100 ml # Voids 4 4 # Bowel Movements 1 Laboratory Tests 12/18/18 10:24: White Blood Count 5.0, Red Blood Count 3.15L, Hemoglobin 10.3L, Hematocrit 28.3L , Mean Corpuscular Volume 90, Mean Corpuscular Hemoglobin 32.7H, Mean Corpuscular Hemoglobin Concent 36.4H, Red Cell Distribution Width 12.9, Platelet Count 128L, Mean Platelet Volume 5.9L, Neutrophils (%) (Auto) 67.0, Lymphocytes (%) (Auto) 19.6L, Monocytes (%) (Auto) 7.3, Eosinophils (%) (Auto) 5.0H, Basophils (%) (Auto) 1.0, Sodium Level 139, Potassium Level 3.2L, Chloride Level 104, Carbon Dioxide Level 27, Anion Gap 8, Blood Urea Nitrogen 12 , Creatinine 1.1, Estimat Glomerular Filtration Rate , Glucose Level 200H, Calcium Level 8.3L, Total Bilirubin 0.3, Aspartate Amino Transf (AST/SGOT) 20, Alanine Aminotransferase (ALT/SGPT) 16, Alkaline Phosphatase 43L, Total Protein 6.2L, Albumin 3.0L, Globulin 3.2, Albumin/Globulin Ratio 0.9L Height (Feet): 5 Height (Inches): 5.00 Weight (Pounds): 136 Objective NAD HEENT: Fairly negative. NECK: Supple. Oropharynx essentially clear. LUNGS: Fairly clear. Symmetric. No rhonchi or wheezes. CARDIAC: Normal S1, S2. Regular rate and rhythm without murmurs, rubs, or gallops. ABDOMEN: Soft, nontender, nondistended. no HSM EXTREMITIES: No cyanosis, clubbing, or edema. NEUROLOGICAL: Appears to be grossly nonfocal. reviewed and edited Humphrey Vergara MD December 19, 2018 08:29
[2018-12-19] MEDS: Glimepiride 4mg tab ORAL SCH (08:46)
[2018-12-19] MEDS: Pancrelipase Dr Cap ORAL SCH (08:46)
[2018-12-19] MEDS: Metoprolol Succinate XL 25mg tab ORAL SCH (08:47)
[2018-12-19] MEDS: Docusate 250mg cap ORAL SCH (08:47)
[2018-12-19] MEDS: Lyrica 25mg cap ORAL SCH ×3 (08:47→18:00)
--- NOTE | 2018-12-19 10:52 | NUR ---
DISCHARGE PLANNING PATIENT HAS BEEN REFERRED TO [facility] T: [phone] F: [phone]
[2018-12-19 12:00] VITALS: BP 116/86
--- NOTE | 2018-12-19 13:20 | NUR ---
RD ASSESSMENT & RECOMMENDATIONS SEE CARE ACTIVITY FOR COMPLETE ASSESSMENT DAILY ESTIMATED NEEDS: Needs based on Diabetes/ 60kg abw 25-30 kcals/kg 0058-0402 total kcals 1-1.3 g protein/kg 60-78 g total protein 25-30 mL/kg [id number] total fluid mLs NUTRITION DIAGNOSIS: Altered nutrition related lab values R/T diabetes as evidenced by elev BGs and POC glu (162 79 159 137 169 154) CURRENT DIET:Regular PO DIET RECOMMENDATIONS: CCHO MED, LOW FAT/ texture as tolerated ADDITIONAL RECOMMENDATIONS: * Calibrated bedscale wt for accurate CBW * Monitor PO tolerance- denies n/v/d, abd pain at this time * A1C for eval of glycemic control * Monitor lytes, replete as needed (low K)
--- NOTE | 2018-12-19 14:38 | NUR ---
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 [employer] HAS NOW REFAXED REFERRAL TO [facility] T: [phone] F: [phone]
[2018-12-19 16:00] VITALS: BP 139/89
--- NOTE | 2018-12-19 16:16 | NUR ---
P.T NOTE: P.T EVALUATION COMPLETED AND TREATMENT INITIATED. PLEASE REFER TO P.T EVALUATION FOR CURRENT FUNCTIONAL STATUS. SKILLED P.T SERVICE IS WARRANTED TO IMPROVE HER STRENGTH BALANCE AND ENDURANCE TO INCREASE HER MOBILITY INDEPENDENCE AND SAFETY. RECOMMEND HOME P.T AT [place].
--- NOTE | 2018-12-19 17:45 | NUR ---
NURSE NOTES: Cancel discharge home today. May discharge to SNF instead. Left message for housing case manager. Patient and son aware.
--- NOTE | 2018-12-19 19:30 | NUR ---
HAND-OFF: Report given to Isabella LEHMAN. Patient is stable.
--- NOTE | 2018-12-19 19:51 | NUR ---
NURSE NOTES: Received patient in bed, Maltese speaking only, awake, alert x4, gets confused at times, able to use bedside commode with minimal assistance. No acute distress noted, VSS, afebrile, call light is within reach, bed is in low position, locked and alarm is on. Will continue to monitor for safety and comfort.
[2018-12-19 20:00] VITALS: BP 150/92
--- NOTE | 2018-12-19 20:12 | General Progress Note ---
Assessment/Plan Assessment/Plan: Assessment - epigastric pain - resolving - Nausea, anorexia - resolving - mild elevation in LFT - anemia, with OB (-) stools Recommendations - PPI - Hold NSAID - push po diet - observe for further N/V - d/c planning Subjective Allergies: Coded Allergies: No Known Allergies (Unverified , 12/11/18) Subjective Above noted tolerating PO d/w RN no further N/V noted Objective Last 24 Hour Vital Signs Date Time Temp Pulse Resp B/P (MAP) Pulse Ox O2 Delivery O2 Flow Rate FiO2 12/19/18 16:00 98.4 88 20 139/89 (106) 93 12/19/18 12:00 99.0 96 18 116/86 (96) 96 12/19/18 09:00 Room Air Room Air 12/19/18 08:47 97 139/95 12/19/18 08:00 97.5 97 16 139/95 (110) 95 12/18/18 20:39 Room Air Room Air Intake and Output 12/18/18 12/19/18 19:00 07:00 Intake Total 240 ml 1450 ml Balance 240 ml 1450 ml Intake Oral 240 ml 350 ml IV Total 1100 ml # Voids 4 4 # Bowel Movements 1 Height (Feet): 5 Height (Inches): 5.00 Weight (Pounds): 136 Objective WDWN NCAT supple CTA RRR abd soft ND no edema calm, interactive Jose L Shepard MD December 19, 2018 20:12
[2018-12-19] MEDS: LORazepam 1mg tab ORAL PRN (22:34)
[2018-12-20] VITALS: BP 127/100
[2018-12-20] MEDS: traMADol 50mg tab ORAL PRN ×2 (00:51→11:01)
[2018-12-20 04:00] VITALS: BP 121/70
[2018-12-20] MEDS: NovoLOG Insulin Flexpen SUBQ SCH ×2 (06:08→11:30)
--- NOTE | 2018-12-20 07:17 | NUR ---
NURSE NOTES: RN received pt in stable condition, sleeping in bed. No acute distress or SOB. Pt Turkmen speaking only. D/C planning for SNF; waiting on placement. Bed in low, locked position, call light within reach. Will continue plan of care.
--- NOTE | 2018-12-20 07:18 | NUR ---
HAND-OFF: Report given to Luciana LEHMAN.
--- NOTE | 2018-12-20 07:51 | NUR ---
DISCHARGE PLANNING NEW DISCHARGE ORDER NOTED FAXED CLINICALS TO [facility] T: [phone] AWAIT ACCEPTANCE AND ROOM NUMBER IF [facility] CANNOT ACCEPT WILL THEN REFER TO [facility]
[2018-12-20 08:00] VITALS: BP 122/83
[2018-12-20] MEDS: Pancrelipase Dr Cap ORAL SCH (08:42)
[2018-12-20] MEDS: Docusate 250mg cap ORAL SCH (08:42)
[2018-12-20] MEDS: Lyrica 25mg cap ORAL SCH ×2 (08:42→12:51)
[2018-12-20] MEDS: Glimepiride 4mg tab ORAL SCH (08:42)
[2018-12-20] MEDS: Metoprolol Succinate XL 25mg tab ORAL SCH (08:43)
--- NOTE | 2018-12-20 10:23 | NUR ---
DISCHARGE PLANNED PATIENT WILL DISCHARGE TO [facility] ROOM 6C SKILLED T: [phone] FOR NURSE TO NURSE REPORT [facility] HAS BEEN ARRANGED FOR 1300 PICK
[2018-12-20] MEDS: LORazepam 1mg tab ORAL PRN ×2 (11:57→12:50)
[2018-12-20 12:00] VITALS: BP 114/76
--- NOTE | 2018-12-20 12:41 | NUR ---
NURSE NOTES: RN administered PRBC per Dr. Campuzano's order; hct 7.8, hgb 23.3. RN verified blood per protocol in lab and with FALLON Lyles / charge nurse at bedside. RN remained with pt; 15 min post transfusion vitals WNL. Pt fell asleep and is tolerating well. Family at bedside. Will continue to monitor. Addendum: 12/20/18 at 1409 by DOMINGO GUTIERREZ RN Charted on wrong patient. Disregard.
--- NOTE | 2018-12-20 14:11 | NUR ---
NURSE NOTES: Pt discharged in stable condition, no acute distress or SOB. Pt crying not wanting to be transferred to SNF. Charge nurse made aware. Son called. After pt talked to son, she agreed to go with transport team. RN gave report to [facility] at [facility]. Discharge packet sent with with pt. Pt belongings accounted for, including medications. IV and arm band removed.
--- NOTE | 2018-12-20 14:36 | General Progress Note ---
Assessment/Plan Assessment/Plan: IMPRESSION: Abdominal pain, noted constipation, hyponatremia, chronic pain, diabetes, and hypertension. anemia, nausea PLAN care noted dc planning to snf cleared by all monitor for change accepted and medications reconciled impression, plan, and exam edited and reviewed in detail care discussed with RN Subjective Allergies: Coded Allergies: No Known Allergies (Unverified , 12/11/18) Subjective dc planning to snf family notes they can not care for her at home Objective Last 24 Hour Vital Signs Date Time Temp Pulse Resp B/P (MAP) Pulse Ox O2 Delivery O2 Flow Rate FiO2 12/20/18 13:21 98.0 12/20/18 12:00 98.0 97 18 114/76 (89) 97 12/20/18 11:31 98.1 12/20/18 09:00 Room Air Room Air 12/20/18 08:43 90 122/83 12/20/18 08:00 98.1 90 18 122/83 (96) 95 12/20/18 04:00 97.7 79 17 121/70 (87) 12/20/18 00:00 98.9 92 18 127/100 (109) 12/19/18 21:00 Room Air Room Air 12/19/18 20:00 99.0 101 19 150/92 (111) 12/19/18 16:00 98.4 88 20 139/89 (106) 93 Intake and Output 12/19/18 12/20/18 19:00 07:00 Intake Total 700 ml 600 ml Balance 700 ml 600 ml IV Total 700 ml 600 ml # Voids 5 Height (Feet): 5 Height (Inches): 5.00 Weight (Pounds): 136 Objective NAD HEENT: Fairly negative. NECK: Supple. Oropharynx essentially clear. LUNGS: Fairly clear. Symmetric. No rhonchi or wheezes. CARDIAC: Normal S1, S2. Regular rate and rhythm without murmurs, rubs, or gallops. ABDOMEN: Soft, nontender, nondistended. no HSM EXTREMITIES: No cyanosis, clubbing, or edema. NEUROLOGICAL: Appears to be grossly nonfocal. reviewed and edited Humphrey Vergara MD December 20, 2018 14:36
--- NOTE | 2018-12-20 21:40 | General Progress Note ---
Assessment/Plan Assessment/Plan: Assessment - epigastric pain - resolving - Nausea, anorexia - resolving - mild elevation in LFT - anemia, with OB (-) stools Recommendations - PPI - Hold NSAID - push po diet - observe for further N/V - d/c planning Subjective Allergies: Coded Allergies: No Known Allergies (Unverified , 12/11/18) Subjective Above noted tolerating PO d/w RN no further N/V noted for d/c today Objective Last 24 Hour Vital Signs Date Time Temp Pulse Resp B/P (MAP) Pulse Ox O2 Delivery O2 Flow Rate FiO2 12/20/18 13:21 98.0 12/20/18 12:00 98.0 97 18 114/76 (89) 97 12/20/18 11:31 98.1 12/20/18 09:00 Room Air Room Air 12/20/18 08:43 90 122/83 12/20/18 08:00 98.1 90 18 122/83 (96) 95 12/20/18 04:00 97.7 79 17 121/70 (87) 12/20/18 00:00 98.9 92 18 127/100 (109) Intake and Output 12/19/18 12/20/18 19:00 07:00 Intake Total 700 ml 600 ml Balance 700 ml 600 ml IV Total 700 ml 600 ml # Voids 5 Height (Feet): 5 Height (Inches): 5.00 Weight (Pounds): 136 Objective WDWN NCAT supple CTA RRR abd soft ND no edema calm, interactive Jose L Shepard MD December 20, 2018 21:40
--- NOTE | 2018-12-22 08:13 | Discharge Summary ---
Discharge Summary Discharge Summary _ DATE OF ADMISSION: 12/11/2018 DATE OF DISCHARGE: 12/20/2018 DISCHARGED BY: Dr. Vergara REASON FOR ADMISSION: 78 years old female with past medical history of hypertension, diabetes mellitus , hypercholesterolemia, possible neuropathy, presented to emergency department with abdominal pain. Patient also reported nonbloody episodes of vomiting . Patient denied diarrhea , hematemesis, hematochezia. Patient apparently was seen by her doctor and found to have constipation. Upon evaluation vital signs were stable . Sodium 121 , otherwise stable electrolytes. WBC 3.9, hemoglobin 11.7. Platelet count stable. Creatinine 1.5 , BUN [address] of the chest , abdomen and pelvis revealed no acute findings. Patient received IV fluids and antiemetic in the emergency department and subsequently admitted for further management CONSULTANTS: GI specialist dr. Shepard [facility] COURSE: Patient admitted to medical surgical floor. Patient started on the IV fluids with normal saline. Hyponatremia work-up initiated. GI consult was requested. Bowel regimen instituted. Antiemetic provided as needed. Nonsteroidal anti-inflammatory medication were hold/meloxicam. Patient started on proton pump inhibitor. Hemoglobin and hematocrit were closely monitored with goal to 7. Anemia work-up revealed anemia of chronic disease. Stool for occult blood was negative. Patient undergone upper endoscopy with enteroscopy and biopsy which was normal. Biopsy of small bowel revealed small bowel mucosa with no significant diagnostic abnormality. Biopsy of antrum revealed mild chronic gastritis , no H. pylori. Biopsy of gastric fundus revealed mild chronic gastritis , no H. pylori. Biopsy of the lower esophagus revealed squamous mucosa with mild reactive changes. Diet was slowly advanced as tolerated. Hemoglobin and hematocrit were closely monitored his goal to keep hemoglobin above 7 . Prior to discharge hemoglobin 10.3 , hematocrit 28.3. GI recommended push oral fluid , observe for further nausea and vomiting , hold nonsteroidal anti-inflammatory medication and continue with PPI. Renal parameters and electrolytes were closely monitored, electrolytes further corrected as needed. Sodium stabilized with IV hydration and prior to discharge sodium 139. Acute hyponatremia was most probably due to dehydration. Creatinine from initial 1.5 down 1.1 prior to discharge. Acute kidney injury was likely due to dehydration as well. Blood pressure was managed with beta-severino and remained stable. Statin was continued. Blood sugar was managed with oral hypoglycemic and sliding scale of insulin was implemented as needed. Supportive care provided. Pain management was addressed as needed. Abdominal pain resolved. Bowel regimen continued. No further nausea or vomiting. Oral hydration was encouraged. Transfer was arranged to alf facility for continuation of care . Patient was stable for transfer. Hold NSAIDs. FINAL DIAGNOSES: Abdominal pain probably due to constipation and possibly mild chronic gastritis -resolved Constipation-resolved s/p ECG Mild chronic gastritis Acute hyponatremia , likely due to dehydration -resolved Acute kidney injury likely due to dehydration- resolved Hypertension Diabetes Anemia of chronic disease DISCHARGE MEDICATIONS: See Medication Reconciliation list. DISCHARGE INSTRUCTIONS: Patient was discharged to the alf facility. Follow up with medical doctor at the facility. I have been assigned to dictate discharge summary for this account. I was not involved in the patient's management. Chelsey Toeny NP December 22, 2018 08:13
== END 2018-12-20 14:00 | DRG 392 ==
LOC: EMR 12:50 → 2E 13:10 → EDBEDREQ 13:52 → 2E 12-15 00:32 → 3E 12-18 18:23
PROC: 0DB68ZX Excision of Stomach, Via Natural or Artificial Opening Endoscopic, Diagnostic (ICD-10-PCS; principal; 2018-12-15 10:16)
PROC: 0DB98ZX Excision of Duodenum, Via Natural or Artificial Opening Endoscopic, Diagnostic (ICD-10-PCS; principal; 2018-12-15 10:16)
DX: R10.9 Unspecified abdominal pain (principal); E87.1 Hypo-osmolality and hyponatremia; K27.9 Peptic ulcer, site unspecified, unspecified as acute or chronic, without hemorrhage or perforation; K59.00 Constipation, unspecified; E78.00 Pure hypercholesterolemia, unspecified; E11.9 Type 2 diabetes mellitus without complications; I10 Essential (primary) hypertension; R63.0 Anorexia; D64.9 Anemia, unspecified; G89.29 Other chronic pain; R10.13 Epigastric pain
CPT/HCPCS: 36415; 71250; 74176; 78266; 80053; 81003; 82270; 82962; 83540; 83550; 83690; 83935; 84300; 84484; 85025; 85610; 85730; 86850; 86900; 86901; 87081; 93005; 93970; 94003; 94150; 96361; 96374; 96375; 96376; 99285; J1815; J2405